=== PATIENT | male | born 1950 | race Caucasian/White ===

== ENCOUNTER 2016-05-05 21:58 | Inpatient (IN) | payer OTHER, MEDICARE ==
[~2016-05-05] VITALS: Ht 170.2 cm; Wt 76.0 kg
[~2016-05-05 21:58] MED LIST: LOVA20TA PO; PRED20 PO; RANI150 PO
[2016-05-05 21:59] VITALS: BP_SYST 132; BP_SYST 155; BP_DIAS 69; BP_DIAS 86; PULSE 83; RESP 18; TEMP 98.6; O2SAT 95
[2016-05-05] MEDS ORDERED: PRIL20CA9 PO (22:38)
[2016-05-05] MEDS ORDERED: ISOS30TA3 PO (22:38)
[2016-05-05] MEDS ORDERED: NITR0.4S SL (22:38)
[2016-05-05] MEDS ORDERED: ASPI1TAB69 PO (22:38)
[2016-05-05] MEDS ORDERED: LOVA20TA PO (22:38)
[2016-05-05] MEDS ORDERED: ASPIRIN 81 MG CHEW TAB PO ONE (22:45)
[2016-05-05] MEDS ORDERED: NITROGLYCERIN 2% OINT 1 GM PACKET TOP ONE (22:45)
[2016-05-05] MEDS ORDERED: SODIUM CHLORIDE 0.9% FLUSH 10 ML FLUSH IVF PRN (22:45)
[2016-05-05] MEDS ORDERED: SODIUM CHLORID 0.9% 500 ML INJ 500 ML IV ONE (22:45)
[2016-05-05 22:57] LABS: AUTOMATED NEUTROPHIL # 3.7 TH/MM3 (1.8-7.7); BASOPHIL # 0.1 TH/MM3 (0-0.2); BASOPHIL % 1.3 % (0.0-2.0); EOSINOPHIL # 0.4 TH/MM3 (0-0.4); EOSINOPHIL % 5.5 % (0.0-4.0); HEMATOCRIT 42.6 % (39.0-51.0); HEMO FLAGS DIFF FINAL; LYMPH % 34.1 % (9.0-44.0); LYMPHOCYTE # 2.5 TH/MM3 (1.0-4.8); MEAN CELL VOLUME 89.7 FL (80.0-100.0); MEAN CORPUSCULAR HEMOGLOBIN 30.5 PG (27.0-34.0); MEAN CORPUSCULAR HGB CONC 33.9 % (32.0-36.0); MONO % 8.5 % (0.0-8.0); NEUT % 50.6 % (16.0-70.0); PLATELET COUNT 244 TH/MM3 (150-450); RED BLOOD COUNT 4.74 MIL/MM3 (4.50-5.90); RED CELL DISTRIBUTION WIDTH 13.2 % (11.6-17.2); WHITE BLOOD COUNT 7.3 TH/MM3 (4.0-11.0)
[2016-05-05 23:01] VITALS: BP 148/78; PULSE 83; RESP 16; O2SAT 95
[2016-05-05] MEDS ORDERED: TAMS5CAP PO (23:01)
[2016-05-05] MEDS ORDERED: ALLO300T2 PO (23:01)
[2016-05-05] MEDS ORDERED: METO25TA3 PO (23:01)
[2016-05-05] MEDS ORDERED: PRAV40TA2 PO (23:01)
[2016-05-05] MEDS ORDERED: MILK250C PO (23:01)
[2016-05-05 23:02] LABS: CHLORIDE 106 MEQ/L (98-107); POTASSIUM 3.3 MEQ/L (3.5-5.1); SODIUM (NA) 142 MEQ/L (136-145)
[2016-05-05 23:06] LABS: ANION GAP 11 MEQ/L (5-15); BICARBONATE 24.7 MEQ/L (21.0-32.0); BLOOD UREA NITROGEN 13 MG/DL (7-18); MAGNESIUM 2.2 MG/DL (1.5-2.5)
[2016-05-05 23:08] LABS: INTERNATIONAL NORMALIZED RATIO 0.9 RATIO
[2016-05-05 23:09] LABS: ALT (GPT) 38 U/L (12-78); AST (GOT) 23 U/L (15-37); GLOMERULAR FILTRATION RATE 67 ML/MIN (>89)
[2016-05-05 23:11] LABS: TOTAL BILIRUBIN ADULT 0.3 MG/DL (0.2-1.0)
--- NOTE | 2016-05-05 23:11 | RADHPO ---
EXAM DATE/TIME: 05/05/2016 22:50 [place] COMPARISON: CHEST SINGLE AP, September 26, 2013, 22:16. INDICATIONS : Chest pain starting today MEDICAL HISTORY : None. SURGICAL HISTORY : None. ENCOUNTER: Initial ACUITY: 1 day PAIN SCORE: 7/10 LOCATION: Bilateral chest FINDINGS: Scattered streakiness is noted within the lung bases consistent with atelectasis and/or scarring. Cl inical correlation is recommended. The heart is stable. The pulmonary vascular pattern is normal. CONCLUSION: 1. Bibasilar streakiness consistent with atelectasis and/or scarring. 2. No focal alveolar consolidation or pulmonary edema. Alvaro Moy MD on May 05, 2016 at 23:05 Board Certified Radiologist. This report was verified electronically.
[2016-05-05 23:12] LABS: ALKALINE PHOSPHATASE 94 U/L (45-117)
--- NOTE | 2016-05-05 23:25 | PD ---
HPI Chief Complaint: Chest Pain Time Seen by Provider: 22:20 Travel History International Travel<30 days: No Contact w/Intl Traveler<30days: No Traveled to known affect area: No History of Present Illness HPI Is a 66-year-old man who presents to the emergency department complaining of chest pain and dyspnea on exertion is been worsening over the past 3-4 months. Patient states she's been getting pressure-like chest discomfort associated with shortness of breath predictably with exertion over the past 3-4 months is been getting steadily worse. These symptoms were worse today so he came to the emergency department. Reportedly follows with Dr. Huertas. He has no known history of CAD. He reportedly had a stress test done last week that they reported as normal however the daughter over the phone reported that the test was abnormal the paperwork with him rescheduled for an echocardiogram and therefore they were told if he developed any chest pain at all to come to the emergency department right away. He otherwise has been feeling generally well. He is not having lower extremity swelling, orthopnea, Alvaro evidence of heart failure. He is not otherwise recently ill or injured. Review systems is positive for some arthritis in his neck and headache symptoms. History Past Medical History Narrative Medical Hypertension Hyperlipidemia Fatty liver Tetanus Vaccination: > 5 Years Influenza Vaccination: No Social History Alcohol Use: Yes ("3 DAYS A WEEK ON MY DAYS OFF") Tobacco Use: No (QUIT AGE 33) Allergies-Medications (Allergen,Severity, Reaction): Coded Allergies: Lisinopril (Unverified Allergy, Severe, ANGIOEDEMA, 05/05/16) Reported Meds & Prescriptions Reported Meds & Active Scripts Active Reported Milk Thistle 250 Mg Cap 1 Cap PO DAILY Allopurinol 300 Mg Tab 300 Mg PO BID Flomax (Tamsulosin HCl) 0.4 Mg Cap 0.4 Mg PO DAILY Metoprolol Tartrate 25 Mg Tab 25 Mg PO BID Pravastatin 40 Mg Tab 40 Mg PO DAILY Prilosec (Omeprazole) 20 Mg Cap 20 Mg PO DAILY Nitrostat SL (Nitroglycerin) 0.4 Mg Subl 0.4 Mg SL DIRECTED PRN 1 tablet under the tongue as needed for chest pain. Repeat every 5 minutes for a total of 3 DOSES or call 911 if NO relief. Isosorbide Mononitrate ER (Isosorbide Mononitrate) 30 Mg Oscar 30 Mg PO DAILY Aspirin 81 Mg Tabdr 81 Mg PO DAILY Review of Systems Except as stated in HPI: all other systems reviewed are Neg Physical Exam Narrative GENERAL: Well-appearing 66 year-old man, no acute distress. SKIN: Focused skin assessment reveals a little bit of diaphoresis. HEAD: Atraumatic. Normocephalic. EYES: Pupils equal and round. No scleral icterus. No injection or drainage. ENT: No nasal bleeding or discharge. Mucous membranes pink and moist. NECK: Trachea midline. No JVD. CARDIOVASCULAR: Regular rate and rhythm. No murmur appreciated. Symmetric equal peripheral pulses upper and lower extremities. RESPIRATORY: No accessory muscle use. Clear to auscultation. Breath sounds equal bilaterally. GASTROINTESTINAL: Abdomen soft, non-tender, nondistended. Hepatic and splenic margins not palpable. MUSCULOSKELETAL: No obvious deformities. No edema. NEUROLOGICAL: Awake and alert. No obvious cranial nerve deficits. Motor grossly within normal limits. Normal speech. PSYCHIATRIC: Appropriate mood and affect; insight and judgment normal. Data Data Last Documented VS Vital Signs Date Time Temp Pulse Resp B/P Pulse Ox O2 Delivery O2 Flow Rate FiO2 05/05/16 23:01 83 16 148/78 95 Nasal Cannula 2 05/05/16 21:59 98.6 Orders B-Type Natriuretic Peptide (05/05/16 22:33) Complete Blood Count With Diff (05/05/16 22:33) Comprehensive Metabolic Panel (05/05/16 22:33) Magnesium (Mg) (05/05/16 22:33) Prothrombin Time / Inr (Pt) (05/05/16 22:33) Act Partial Throm Time (Ptt) (05/05/16 22:33) Troponin I (05/05/16 22:33) Lipase (05/05/16 22:33) Chest, Single Ap (05/05/16 22:33) Ecg Monitoring (05/05/16 22:33) Iv Access Insert/Monitor (05/05/16 22:33) Oximetry (05/05/16 22:33) Oxygen Administration (05/05/16 22:33) Aspirin Chew (Aspirin Chew) (05/05/16 22:45) Nitroglycerin 2% Oint (Nitroglycerin 2% (05/05/16 22:45) Sodium Chloride 0.9% Flush (Ns Flush) (05/05/16 22:45) Sodium Chlorid 0.9% 500 Ml Inj (Ns 500 M (05/05/16 22:45) Labs Laboratory Tests Test 05/05/16 22:05 White Blood Count 7.3 TH/MM3 Red Blood Count 4.74 MIL/MM3 Hemoglobin 14.4 GM/DL Hematocrit 42.6 % Mean Corpuscular Volume 89.7 FL Mean Corpuscular Hemoglobin 30.5 PG Mean Corpuscular Hemoglobin 33.9 % Concent Red Cell Distribution Width 13.2 % Platelet Count 244 TH/MM3 Mean Platelet Volume 8.7 FL Neutrophils (%) (Auto) 50.6 % Lymphocytes (%) (Auto) 34.1 % Monocytes (%) (Auto) 8.5 % Eosinophils (%) (Auto) 5.5 % Basophils (%) (Auto) 1.3 % Neutrophils # (Auto) 3.7 TH/MM3 Lymphocytes # (Auto) 2.5 TH/MM3 Monocytes # (Auto) 0.6 TH/MM3 Eosinophils # (Auto) 0.4 TH/MM3 Basophils # (Auto) 0.1 TH/MM3 CBC Comment DIFF FINAL Differential Comment Prothrombin Time 10.0 SEC Prothromb Time International 0.9 RATIO Ratio Activated Partial 29.0 SEC Thromboplast Time Sodium Level 142 MEQ/L Potassium Level 3.3 MEQ/L Chloride Level 106 MEQ/L Carbon Dioxide Level 24.7 MEQ/L Anion Gap 11 MEQ/L Blood Urea Nitrogen 13 MG/DL Creatinine 1.10 MG/DL Estimat Glomerular Filtration 67 ML/MIN Rate Random Glucose 87 MG/DL Calcium Level 8.6 MG/DL Magnesium Level 2.2 MG/DL Total Bilirubin 0.3 MG/DL Aspartate Amino Transf 23 U/L (AST/SGOT) Alanine Aminotransferase 38 U/L (ALT/SGPT) Alkaline Phosphatase 94 U/L Total Protein 7.4 GM/DL Albumin 3.8 GM/DL Lipase 384 U/L [facility] Medical Decision Making Medical Screen Exam Complete: Yes Emergency Medical Condition: Yes Interpretation(s) My review of EKG: Normal sinus rhythm at a rate of 88, normal axis, normal intervals, nonspecific septal and lateral ST changes. No definite evidence of acute ischemia. LABS: CBC is unremarkable. Generally unremarkable. Troponin 0.39 BNP is 68 Lipase is 34 Coags unremarkable Chest x-ray: Bibasilar streakiness consistent with atelectasis and/or scarring. No focal alveolar consolidation or pulmonary edema. Differential Diagnosis ACS, CHF, gastritis, PE, other Narrative Course Medical decision making INITIAL: This 66-year-old male with symptoms strongly suggestive of an acute coronary syndrome. Other etiologies could include CHF or PE. He looks generally well now. Does not have any chest discomfort at this time. EKG shows nonspecific lateral ST changes could be shared services representative some ischemia. Labs reveal elevated troponin. Also discussed a cardiology, likely anticoagulation, transfer the main hospital for ACS. Diagnosis Primary Impression: Acute coronary syndrome Admitting Information Admitting Physician Requests: Admit Francois Pino MD May 05, 2016 23:25
[2016-05-05] MEDS ORDERED: HEPARIN-D5W INJ 250 ML IV SCH (23:45)
[2016-05-05] MEDS ORDERED: HEPARIN SODIUM - IV 10,000 UNITS/10 ML VIAL IV ONE (23:45)
[2016-05-06] VITALS (20 sets, daily range): BP systolic 118–136; BP diastolic 62–77; PULSE 59–89; RESP 16–20; TEMP 97.2–98.6; O2SAT 94–98
[2016-05-06] MEDS ORDERED: SENNOSIDES 8.6 MG TAB PO PRN
[2016-05-06] MEDS ORDERED: MAGNESIUM HYDROXIDE SUSP 30 ML CUP PO PRN
[2016-05-06] MEDS ORDERED: NALOXONE HCL 0.4 MG/ML AMP IV PRN
[2016-05-06] MEDS ORDERED: BISACODYL 10 MG SUPP RECTAL PRN
[2016-05-06] MEDS ORDERED: METOPROLOL TARTRATE 25 MG TAB PO ONE (00:15)
[2016-05-06] MEDS: SODIUM CHLOR 0.45% 1000 ML INJ 1,000 ML IV SCH ×2 (00:26→13:14)
[2016-05-06] MEDS ORDERED: HEPARIN SODIUM - IV 10,000 UNITS/10 ML VIAL IV PRN ×4 (05:45→17:00)
[2016-05-06 06:22] LABS: AUTOMATED NEUTROPHIL # 3.9 TH/MM3 (1.8-7.7); BASOPHIL # 0.1 TH/MM3 (0-0.2); BASOPHIL % 1.2 % (0.0-2.0); EOSINOPHIL # 0.5 TH/MM3 (0-0.4); EOSINOPHIL % 6.9 % (0.0-4.0); HEMATOCRIT 38.6 % (39.0-51.0); HEMO FLAGS DIFF FINAL; LYMPH % 29.8 % (9.0-44.0); LYMPHOCYTE # 2.2 TH/MM3 (1.0-4.8); MEAN CELL VOLUME 89.7 FL (80.0-100.0); MEAN CORPUSCULAR HEMOGLOBIN 31.2 PG (27.0-34.0); MEAN CORPUSCULAR HGB CONC 34.8 % (32.0-36.0); MONO % 8.1 % (0.0-8.0); PLATELET COUNT 217 TH/MM3 (150-450); RED CELL DISTRIBUTION WIDTH 13.3 % (11.6-17.2); WHITE BLOOD COUNT 7.3 TH/MM3 (4.0-11.0)
[2016-05-06 06:29] LABS: CHLORIDE 108 MEQ/L (98-107); POTASSIUM 3.6 MEQ/L (3.5-5.1); SODIUM (NA) 142 MEQ/L (136-145)
[2016-05-06 06:46] LABS: ALKALINE PHOSPHATASE 79 U/L (45-117); ALT (GPT) 34 U/L (12-78); ANION GAP 9 MEQ/L (5-15); AST (GOT) 24 U/L (15-37); BICARBONATE 25.1 MEQ/L (21.0-32.0); BLOOD UREA NITROGEN 15 MG/DL (7-18); GLOMERULAR FILTRATION RATE 81 ML/MIN (>89); TOTAL BILIRUBIN ADULT 0.3 MG/DL (0.2-1.0)
[2016-05-06] MEDS ORDERED: ISOSORBIDE MONONITRATE 30 MG TAB PO SCH (07:00)
[2016-05-06 07:13] LABS: APTT (PATIENT) 111.1 SEC (24.3-30.1)
--- NOTE | 2016-05-06 08:13 | MB ---
cc: PAVEL FIGUEROA MD DATE OF CONSULTATION: 05/06/2016 REASON FOR CONSULTATION Acute coronary syndrome. HISTORY OF PRESENT ILLNESS The patient is a very pleasant 66-year gentleman known to me, who presented to my office about a week ago with classic symptoms of unstable angina. He declined emergency room and underwent a nuclear stress test which surprisingly was normal but he kept having worsening classic unstable angina and he was directed to the emergency department on several occasions but declined due to work, but last night he had severe chest pain and finally presented to the [facility]. Here he was given nitroglycerin and started on heparin and made chest pain free. His troponins are mildly elevated. This morning the patient is now asymptomatic without any residual chest pain, denying shortness of breath, lightheadedness, dizziness, syncope. PAST MEDICAL HISTORY 1. Unstable angina. 2. Hyperlipidemia. 3. Hypertension. MEDICATIONS Home medications include: 1. Flomax. 2. Allopurinol. 3. Metoprolol 25 mg b.i.d. 4. Pravastatin 40 mg daily. 5. Isosorbide 30 mg daily. 6. Sublingual nitroglycerin. ALLERGIES Lisinopril. PHYSICAL EXAMINATION VITAL SIGNS: Afebrile, pulse 64, respiratory rate 18, BP 118/70. Sating 98 on 2 liters. GENERAL: Very pleasant, well-appearing gentleman, in no distress. NECK: No JVD. LUNGS: Clear to auscultation bilaterally. CARDIOVASCULAR: Regular rate and rhythm. No murmurs appreciated. ABDOMEN: Benign. EXTREMITIES: No edema. LABORATORY DATA Sodium 142, potassium 3.6, chloride 108, bicarb 25.1, BUN 15, creatinine 0.93, glucose 107, PTT is 111, white count 7.3, hematocrit 38.6, platelets 217, troponin 0.39, 0.41. EKG From 12:30 this morning shows sinus rhythm with inferior and anterolateral ST depressions. IMPRESSION 1. ACS/non-STEMI. The patient presents with classic signs and symptoms of acute coronary syndrome. Though his nuclear stress test was normal, I suspect it is due to multivessel/ balanced ischemia. I discussed this with the patient and he agrees to be transferred to the [facility] for cardiac catheterization which will be done by my colleague Dr. Dela Cruz. Transfer has been arranged. Additionally, he is currently on heparin drip as well as aspirin. I am holding Plavix given the likelihood he may require bypass surgery for multi-vessel disease. Further recommendations will be based on his cardiac catheterization later this morning. Thank you again for the opportunity to participate in this patient's care. MD BEATRICE Goldberg/NEYMAR /7:50 AM /7:58 AM
[2016-05-06] MEDS ORDERED: SODIUM CHLORIDE 0.9% FLUSH 10 ML FLUSH IV FLUSH SCH (09:00)
[2016-05-06] MEDS: METOPROLOL TARTRATE 25 MG TAB PO SCH ×2 (10:24→21:02)
[2016-05-06] MEDS: PANTOPRAZOLE SOD 20 MG DELAYED RELEASE TAB PO SCH (10:24)
[2016-05-06] MEDS: ALLOPURINOL 300 MG TAB PO SCH ×2 (10:24→21:02)
[2016-05-06] MEDS: PRAVASTATIN SOD 40 MG TAB PO SCH (10:24)
[2016-05-06] MEDS: ASPIRIN EC 81 MG TABEC PO SCH (10:24)
[2016-05-06] MEDS: TAMSULOSIN HCL 0.4 MG CAP PO SCH (10:24)
[2016-05-06] MEDS ORDERED: HEPARIN-NS/PF INJ 500 ML ONE (10:37)
[2016-05-06] MEDS ORDERED: MIDAZOLAM HCL 2 MG/2 ML VIAL ONE ×2 (10:44→11:02)
[2016-05-06 10:56] LABS: APTT (PATIENT) 73.2 SEC (24.3-30.1)
--- NOTE | 2016-05-06 11:29 | MB ---
cc: JARETT BARNES DATE OF CONSULTATION May 06, 2016 DATE OF 1950 REASON FOR CONSULTATION [id number] VA/acute coronary syndrome. HISTORY OF PRESENT ILLNESS 66-year-old male with a past medical history significant for hyperlipidemia, hypertension who was admitted to the hospital with complaints of angina. He reports that he had a severe episode of chest pain last night at rest, non- radiating for which he presented to the [facility]. He has a recent nuclear stress test which was unremarkable. In the emergency department EKG shows sinus rhythm with inferior Q-waves as well as ST depressions and troponins are elevated. The patient was started on heparin drip and he has been seen by Cardiology, Dr. Mejia. Interventional Cardiology has been consulted for left heart cath. Currently the patient denies chest pain , shortness of breath, nausea, vomiting, fever, dizziness, lightheadedness, abdominal pain, melena, hematochezia. REVIEW OF SYSTEMS Negative except for what is mentioned in the HPI. PAST MEDICAL HISTORY 1. Hyperlipidemia. 2. Hypertension. 3. BPH. ALLERGIES LISINOPRIL. SOCIAL HISTORY Denies smoking. Denies alcohol use or illicit drug abuse. FAMILY HISTORY Noncontributory. PHYSICAL EXAMINATION VITAL SIGNS: Temperature 98.4, respiratory rate 18, heart rate 67, blood pressure 133/75. O2 sat 94% on 2 liters nasal cannula. GENERAL: He is awake, alert, oriented x 3, in no acute distress. NECK: No JVD, no carotid bruits. HEART: Regular rate and rhythm. No murmurs, rubs or gallops. ABDOMEN: Soft, nontender, nondistended with positive bowel sounds. EXTREMITIES: No edema. No cyanosis. Good pulses throughout. LABORATORY DATA Hemoglobin 13, hematocrit 38. INR 0.9. Sodium 142, potassium 3.6, BUN 15, creatinine 0.93. troponin 0.39 and 0.41. CHEST X-RAY No acute cardiopulmonary process. EKG Sinus rhythm with inferior Q-waves and ST depressions. ASSESSMENT AND PLAN 66-year-old male with cardiac risk factors that include hypertension and hyperlipidemia who presents to the hospital with a [id number] VA. Currently he remains afebrile and hemodynamically stable. The patient does have EKG changes suggestive of ischemia and the troponins are elevated. Given the patient's symptoms and findings, I see appropriate to take him to the Cardiac Catheterization Laboratory to further assess coronary anatomy. The risks and benefits of left heart cath/intervention including but not limit to bleeding, acute kidney injury, stroke, infection, emergent bypass surgery, neurovascular trauma, stroke and have been explained to the patient. The patient understands the risks and is willing to proceed. RECOMMENDATIONS 1. Emergent left heart cath. 2. Continue aggressive medical management for coronary artery disease. Further therapy to be determined Thank you for the opportunity to take part in the care of this patient. Jarett Barnes MD PLUMBER SUPERVISOR/SSB /10:46 AM /11:12 AM MTDD
[2016-05-06] MEDS ORDERED: MISC INFORMATION XX ONE (11:30)
[2016-05-06] MEDS ORDERED: ceFAZolin 2 GM PREMIX 50 ML IV SCH (12:15)
[2016-05-06] MEDS ORDERED: CHLORHEXIDINE GLUCONATE 4% SOLN 120 ML BTL TOPICAL SCH (12:15)
[2016-05-06] MEDS ORDERED: METOPROLOL TARTRATE 25 MG TAB PO SCH (12:15)
[2016-05-06] MEDS ORDERED: SODIUM CHLORIDE 0.9% FLUSH 10 ML FLUSH IV FLUSH PRN ×2 (12:15)
[2016-05-06] MEDS ORDERED: PAPAVERINE INJ 60 MG, NITROGLYCERIN INJ 100 MCG, DILTIAZEM INJ 100 MG in SODIUM CHLORID... IRRIGATION SCH (12:15)
[2016-05-06] MEDS ORDERED: INSULIN REGULAR (IV INFUSION) 100 UNITS in SODIUM CHLORIDE 0.9% INJ 100 ML IV SCH (12:15)
[2016-05-06] MEDS ORDERED: CEFAZOLIN INJ 500 MG in SODIUM CHLORIDE 0.9% IRR BTL 500 ML IRRIGATION SCH (12:15)
[2016-05-06] MEDS ORDERED: IOHEXOL 350 MG/ML 100 ML BTL (for Cath Lab) OTHER ONE (12:16)
--- NOTE | 2016-05-06 12:40 | PD.CAR.PN ---
CVT Progress Note Subjective/Hospital Course: sts data discussed with pt RISK SCORES About the STS Risk Calculator Procedure: CAB Only Risk of Mortality: 0.677% Morbidity or Mortality: 9.53% Long Length of Stay: 2.937% Short Length of Stay: 56.82% Permanent Stroke: 0.813% Prolonged Ventilation: 6.54% DSW Infection: 0.35% Renal Failure: 1.427% Reoperation: 4.132% Objective: Vital Signs Date Time Temp Pulse Resp B/P Pulse Ox O2 Delivery O2 Flow Rate FiO2 05/06/16 09:30 67 05/06/16 09:30 98.4 67 18 133/75 94 05/06/16 08:53 61 18 118/62 98 05/06/16 07:32 98 Nasal Cannula 2 05/06/16 07:32 98 Nasal Cannula 2 05/06/16 07:32 97.2 64 18 118/70 98 Nasal Cannula 2 05/06/16 06:58 97 Nasal Cannula 2 05/06/16 06:00 Nasal Cannula 2 05/06/16 05:58 62 16 125/68 97 Nasal Cannula 2 05/06/16 02:49 98.6 76 18 130/69 96 Nasal Cannula 2 05/06/16 01:43 96 Nasal Cannula 2.00 05/06/16 00:52 Nasal Cannula 2 05/05/16 23:01 83 16 148/78 95 Nasal Cannula 2 05/05/16 22:10 Nasal Cannula 2 05/05/16 22:00 83 95 Room Air 05/05/16 21:59 98.6 83 18 155/86 95 132/69 Labs: Laboratory Tests Test 05/06/16 05/06/16 05/06/16 04:00 06:00 10:13 Total Creatine Kinase 86 U/L (39-308) 136 U/L (39-308) Troponin I 0.41 NG/ML 1.05 NG/ML (0.02-0.05) (0.02-0.05) White Blood Count 7.3 TH/MM3 (4.0-11.0) Red Blood Count 4.30 MIL/MM3 (4.50-5.90) Hemoglobin 13.4 GM/DL (13.0-17.0) Hematocrit 38.6 % (39.0-51.0) Mean Corpuscular Volume 89.7 FL (80.0-100.0) Mean Corpuscular Hemoglobin 31.2 PG (27.0-34.0) Mean Corpuscular Hemoglobin 34.8 % Concent (32.0-36.0) Red Cell Distribution Width 13.3 % (11.6-17.2) Platelet Count 217 TH/MM3 (150-450) Mean Platelet Volume 8.5 FL (7.0-11.0) Neutrophils (%) (Auto) 54.0 % (16.0-70.0) Lymphocytes (%) (Auto) 29.8 % (9.0-44.0) Monocytes (%) (Auto) 8.1 % (0.0-8.0) Eosinophils (%) (Auto) 6.9 % (0.0-4.0) Basophils (%) (Auto) 1.2 % (0.0-2.0) Neutrophils # (Auto) 3.9 TH/MM3 (1.8-7.7) Lymphocytes # (Auto) 2.2 TH/MM3 (1.0-4.8) Monocytes # (Auto) 0.6 TH/MM3 (0-0.9) Eosinophils # (Auto) 0.5 TH/MM3 (0-0.4) Basophils # (Auto) 0.1 TH/MM3 (0-0.2) CBC Comment DIFF FINAL Differential Comment Activated Partial 111.1 SEC 73.2 SEC Thromboplast Time (24.3-30.1) (24.3-30.1) Sodium Level 142 MEQ/L (136-145) Potassium Level 3.6 MEQ/L (3.5-5.1) Chloride Level 108 MEQ/L (98-107) Carbon Dioxide Level 25.1 MEQ/L (21.0-32.0) Anion Gap 9 MEQ/L (5-15) Blood Urea Nitrogen 15 MG/DL (7-18) Creatinine 0.93 MG/DL (0.60-1.30) Estimat Glomerular Filtration 81 ML/MIN (>89) Rate Random Glucose 107 MG/DL (74-106) Calcium Level 7.9 MG/DL (8.5-10.1) Total Bilirubin 0.3 MG/DL (0.2-1.0) Aspartate Amino Transf 24 U/L (15-37) (AST/SGOT) Alanine Aminotransferase 34 U/L (12-78) (ALT/SGPT) Alkaline Phosphatase 79 U/L (45-117) Total Protein 6.1 GM/DL (6.4-8.2) Albumin 3.1 GM/DL (3.4-5.0) Result Diagram: 05/06/16 0600 05/06/16 06 Eunice David May 06, 2016 12:40
--- NOTE | 2016-05-06 13:26 | EKG ---
Date Performed: 05/05/2016 Time Performed: 23:17:40 PTAGE: 66 years EKG: Sinus rhythm . ST junctional depression is nonspecific Borderline ECG PREVIOUS TRACING : 05/05/2016 21.58 Compared to prior tracing no significant change DOCTOR: Xander Tierney Interpretating Date/Time 05/06/2016 13:23:15
--- NOTE | 2016-05-06 13:26 | EKG ---
Date Performed: 05/05/2016 Time Performed: 21:58:10 PTAGE: 66 years EKG: Sinus rhythm . ST junctional depression is nonspecific Borderline ECG PREVIOUS TRACING : 09/27/2013 05.09 Compared to prior tracing no significant change DOCTOR: Xander Tierney Interpretating Date/Time 05/06/2016 13:23:23
--- NOTE | 2016-05-06 13:26 | EKG ---
Date Performed: 05/06/2016 Time Performed: 03:41:44 PTAGE: 66 years EKG: Sinus rhythm . Septal T wave changes are nonspecific Borderline ECG PREVIOUS TRACING : 05/06/2016 00.30 Compared to prior tracing no significant change DOCTOR: Xander Tierney Interpretating Date/Time 05/06/2016 13:23:06
--- NOTE | 2016-05-06 13:34 | HHI.HP ---
[facility] Service [facility] Primary Care Physician Chin Workman MD Admission Diagnosis ACS Diagnoses: Chief Complaint: Chest pain Travel History International Travel<30 Days: No Contact w/Intl Traveler <30 Da: No Traveled to Known Affected Are: No History of Present Illness 66 years old male with past medical history of hypertension hyperlipidemia presented to the ED at [facility] last night with a complaint of left arm numbness and chest heaviness accompanied on by short of breath lightheadedness, and sweatiness. Troponin increased slightly, EKG showed sinus rhythm with inferior Q waves as well as ST depressions, patient started on heparin drip atient transferred [facility] for heart catheter which he had this morning. Initially patient stated he had these chest pain episode 3 weeks ago for which he followed with Dr. Lea, him and his told me patient had a stress test which came back negative. I saw the patient around 12:30 he was having 2-D echo of the heart, he got his chest pain is gone, and family were at the bedside Review of Systems All 10 systems reviewed and was positive for what is mentioned in history of present illness otherwise negative Past Family Social History Past Medical History Hypertension Hyperlipidemia BPH Past Surgical History See history of present illness Allergies: Coded Allergies: Lisinopril (Unverified Allergy, Severe, ANGIOEDEMA, 05/05/16) Family History Reviewed with the patient, patient is not aware of significant medical disease runs in his family Social History Quit smoking many years ago, drinks a bottle of beer occasionally Physical Exam Vital Signs Vital Signs Date Time Temp Pulse Resp B/P Pulse Ox O2 Delivery O2 Flow Rate FiO2 05/06/16 09:30 67 05/06/16 09:30 98.4 67 18 133/75 94 05/06/16 08:53 61 18 118/62 98 05/06/16 07:32 98 Nasal Cannula 2 05/06/16 07:32 98 Nasal Cannula 2 05/06/16 07:32 97.2 64 18 118/70 98 Nasal Cannula 2 05/06/16 06:58 97 Nasal Cannula 2 05/06/16 06:00 Nasal Cannula 2 05/06/16 05:58 62 16 125/68 97 Nasal Cannula 2 05/06/16 02:49 98.6 76 18 130/69 96 Nasal Cannula 2 05/06/16 01:43 96 Nasal Cannula 2.00 05/06/16 00:52 Nasal Cannula 2 05/05/16 23:01 83 16 148/78 95 Nasal Cannula 2 05/05/16 22:10 Nasal Cannula 2 05/05/16 22:00 83 95 Room Air 05/05/16 21:59 98.6 83 18 155/86 95 132/69 Physical Exam GENERAL: This is a well-nourished, well-developed patient, in no apparent distress. SKIN: No rashes, warm and dry HEAD: Atraumatic. Normocephalic. EYES: Pupils equal round and reactive. Extraocular motions intact. No scleral icterus. ENT: Nose without bleeding, or drainage, Airway patent. NECK: Trachea midline. Supple CARDIOVASCULAR: Regular rate and rhythm without murmurs, gallops, or rubs. RESPIRATORY: Fair air entry bilaterally. No wheezes, rales, or rhonchi. GASTROINTESTINAL: Abdomen soft, non-tender, nondistended. Positive bowel sounds MUSCULOSKELETAL: Extremities without clubbing, cyanosis, or edema. Pedal pulses appreciated NEUROLOGICAL: Awake and alert. Moves all extremity. Normal speech.no focal neurological deficit Laboratory Laboratory Tests Test 05/05/16 05/06/16 05/06/16 05/06/16 22:05 04:00 06:00 10:13 White Blood Count 7.3 7.3 Red Blood Count 4.74 4.30 Hemoglobin 14.4 13.4 Hematocrit 42.6 38.6 Mean Corpuscular Volume 89.7 89.7 Mean Corpuscular Hemoglobin 30.5 31.2 Mean Corpuscular Hemoglobin 33.9 34.8 Concent Red Cell Distribution Width 13.2 13.3 Platelet Count 244 217 Mean Platelet Volume 8.7 8.5 Neutrophils (%) (Auto) 50.6 54.0 Lymphocytes (%) (Auto) 34.1 29.8 Monocytes (%) (Auto) 8.5 8.1 Eosinophils (%) (Auto) 5.5 6.9 Basophils (%) (Auto) 1.3 1.2 Neutrophils # (Auto) 3.7 3.9 Lymphocytes # (Auto) 2.5 2.2 Monocytes # (Auto) 0.6 0.6 Eosinophils # (Auto) 0.4 0.5 Basophils # (Auto) 0.1 0.1 CBC Comment DIFF FINAL DIFF FINAL Differential Comment Prothrombin Time 10.0 Prothromb Time International 0.9 Ratio Activated Partial 29.0 111.1 73.2 Thromboplast Time Sodium Level 142 142 Potassium Level 3.3 3.6 Chloride Level 106 108 Carbon Dioxide Level 24.7 25.1 Anion Gap 11 9 Blood Urea Nitrogen 13 15 Creatinine 1.10 0.93 Estimat Glomerular Filtration 67 81 Rate Random Glucose 87 107 Calcium Level 8.6 7.9 Magnesium Level 2.2 Total Bilirubin 0.3 0.3 Aspartate Amino Transf 23 24 (AST/SGOT) Alanine Aminotransferase 38 34 (ALT/SGPT) Alkaline Phosphatase 94 79 Troponin I 0.39 0.41 1.05 B-Type Natriuretic Peptide 68 Total Protein 7.4 6.1 Albumin 3.8 3.1 Lipase 384 Total Creatine Kinase 86 136 Result Diagram: 05/06/16 0600 05/06/16 0600 Imaging Last Impressions Chest X-Ray 05/05/162232 Signed Impressions: Service Date/Time: Thursday, May 05, 2016 22:50 - CONCLUSION: 1. Bibasilar streakiness consistent with atelectasis and/or scarring. 2. No focal alveolar consolidation or pulmonary edema. Alvaro Moy MD Initial EKG showed sinus rhythm with ST depression Assessment and Plan Assessment and Plan 66 years old male admitted with Chest pain increased troponin rule out ACS/non-STEMI Hypertension Hyperlipidemia H/O BPH History of gout DVT prophylaxis Plan: Admitted to inpatient Started with aspirin, heparin drip Consult cardiology appreciated their help, status post heart catheter this morning Further recommendation per cardiology Initiate statin , Lopressor, isosorbide, continue aspirin Awaiting 2-D echo, low dose MARIVEL inhibitor at discharge Absolution for BPH Allopurinol for gout DVT prophylaxis with SCD patient was on heparin drip Discussed Condition With Patient and his family Physician Certification 2 Midnight Certification Type: Admission for Inpatient Services Order for Inpatient Services The services are ordered in accordance with Medicare regulations or non- Medicare payer requirements, as applicable. In the case of services not specified as inpatient-only, they are appropriately provided as inpatient services in accordance with the 2-midnight benchmark. Estimated LOS (days): 2 days is the estimated time the patient will need to remain in the hospital, assuming treatment plan goals are met and no additional complications. Post-Hospital Plan: Not yet determined Fiorella Adame MD May 06, 2016 13:34
--- NOTE | 2016-05-06 13:39 | MA ---
cc: JARETT BARNES DATE: 05/06/2016 DATE OF : 1950 PROCEDURE PERFORMED 1. Left heart catheterization. 2. Selective right and left coronary angiography. 3. Left ventriculogram. 4. Right common femoral artery angiography. INDICATION ACS/non-STEMI. DESCRIPTION OF PROCEDURE Consent was signed. The patient was brought into the cardiac phlebotomy lab assistant in fasting state. The right groin was prepped and draped in sterile fashion. Using 1% lidocaine for local anesthesia and a micropuncture kit a 5-Urdu sheath was inserted into the right common femoral artery, right common femoral artery angiography was performed to confirm position of the sheath. Selective right and left coronary angiography was performed with a JR-4 and JL-4 diagnostic catheters, respectively. Angiography was taken in multiple views. An angled pigtail over the wire was introduced into the left ventricle followed by pressure recordings, ventriculogram and pullback. The patient tolerated the procedure well without complications. Estimated blood loss was less than 30 ccs. Total contrast used 90 ccs. The right groin access site was closed with Vascade closure device. RESULTS LEFT VENTRICLE The left ventricular pressure was 124/22 with an LVEDP of 34. The aortic pressure was 116/44 with a mean of 82. The left ventriculogram revealed hypokinesis on the anterior wall with an estimated ejection fraction of 45%. There is no gradient upon pullback from the left ventricle to the aorta. ANGIOGRAPHY 1. Left main has a significant 80% lesion distally. 2. LAD is a transapical vessel with a 90% lesion proximally. The first diagonal has ostial 90% lesion and another 70% lesion proximally. The vessel has ROCHELLE-III flow. 3. Left circumflex is diffusely diseased and it has an ostial 70% lesion. 4. Right coronary artery is a dominant vessel, it is diffusely diseased with diffusely calcified, it has a mid 30% lesion. CONCLUSION 1. Severe three-vessel coronary artery disease involving the left main. 2. Mild LV systolic dysfunction. 3. Diastolic dysfunction/elevated LVEDP. RECOMMENDATIONS The patient has been consulted to CT surgery for CABG. Continue aggressive medical management for ACS per ACC AHA guidelines with aspirin, statins, beta blockers, and heparin. Will get a 2-D echocardiogram today for better assessment of left ventricular function. MD CATHERINE Bose/NEYMAR /11:34 AM /1:20 PM SILVESTRE
--- NOTE | 2016-05-06 14:39 | MB ---
cc: TILA SU DATE OF CONSULTATION: 05/06/2016 DATE OF : 1950 HISTORY OF PRESENT ILLNESS A 66-year-old patient of Dr. Chin Workman, Dr. Lea, who apparently had a nuclear stress test a few days ago which was unremarkable. However, he presented to the [facility] emergency department with a severe episode of chest pain last evening, non-radiating, was transferred over here to the [facility] for cardiac cath. The patient had some Q-waves as well as some ST depressions and troponins mildly elevated. Troponin of 1.05. He underwent cardiac cath by Dr. Ruslan Dela Cruz showing a 70% stenosis in the left main, 90% proximal LAD, 30% mid distal LAD, 70% diagonal, circumflex was 70% and RCA 30%. The patient's EF was 45%. 2-D echo apparently is pending. We were consulted to evaluate for coronary artery bypass grafting. PAST MEDICAL HISTORY Past medical history includes: 1. Hypertension. 2. Hyperlipidemia. 3. Benign prostatic hypertrophy. ALLERGIES LISINOPRIL. MEDICATIONS Home medications include: 1. Flomax. 2. Allopurinol. 3. Metoprolol. 4. Pravachol. 5. Imdur. 6. Nitro. 7. Aspirin. 8. Milk thistle. 9. Prilosec. FAMILY HISTORY Noncontributory. SOCIAL HISTORY The patient is . Drinks occasional alcohol 3 days a week on his days off. He quit smoking at age 33. He works in outdoor maintenance. REVIEW OF SYSTEMS GENERAL: No night sweats, fever, heat and cold intolerance. SKIN: No psoriasis, itching or hives. HEENT: No blurred vision, hearing loss. RESPIRATORY: He did have some shortness of breath with his pain. CARDIOVASCULAR: As above in HPI. GASTROINTESTINAL: No diarrhea, vomiting. GENITOURINARY: No burning, frequency, urgency. LABOR DELIVERY RN: No history of TIA, CVA, seizure disorder. ENDOCRINOLOGY: No diabetes or hypothyroidism. PHYSICAL EXAMINATION VITAL SIGNS: Blood pressure 130/70, heart rate 68, temperature max 98.4, room air is 98%. GENERAL: Patient is awake, alert, in no acute distress. HEENT: Head is normocephalic, atraumatic. Pupils equal and reactive. Oral mucosa pink, moist. NECK: Supple. No JVD. CARDIAC: Heart sounds S1-S2, regular rate and rhythm. No audible rubs, murmurs, gallops. LUNGS: Clear to auscultation. No wheezes, rales or rhonchi. ABDOMEN: Soft, nontender. No masses or organomegaly. EXTREMITIES: No cyanosis, clubbing or edema. LABORATORY DATA Lab work shows hemoglobin 13, hematocrit 38, white cell count 7.3, platelet count 217, sodium 142, potassium 3.6, BUN 15 with a creatinine 0.93, troponin 1.05. IMAGING STUDIES Chest x-ray is unremarkable. No consolidation or pulmonary edema. EKG Shows sinus rhythm with some nonspecific ST changes. IMPRESSION 1. This is a 66-year-old pleasant male with positive ruled in for non-STEMI. The EF is 45%, multivessel disease. PLAN Plan will be for coronary artery bypass grafting x3. Procedures, alternatives and risks have been discussed by Dr. Tila Su. STS data has been documented in the electronic record. Plan will be for surgery in the a.m. He has further testing to include carotid ultrasound, pulmonary function testing and vein leg mapping. He is to continue on Heparin, which will be discontinued 4 hours prior to surgery. Dictated by: HARVEY AlmonteP-Theresa MD BRIGHT Welch/NEYMAR /12:44 PM /2:34 PM
--- NOTE | 2016-05-06 15:01 | RADRPT ---
EXAM DATE/TIME: 05/06/2016 14:01 [facility] COMPARISON: No previous studies available for comparison. INDICATIONS : PreOp cardiac surgery. MEDICAL HISTORY : Hypercholesterolemia. Hypertension. Dizziness. Dyspnea. Fatty liver. GERD. Herniated disk. Angina. SURGICAL HISTORY : Tonsillectomy. Ear surgery. ENCOUNTER: Initial ACUITY: 1 day PAIN SCORE: 0/10 LOCATION: Bilateral neck PEAK SYSTOLIC VELOCITIES (cm/sec): ICA/CCA RATIO: Right: 1.0 Left: 0.9 ICA: Right: 73 Left: 72 CCA: Right: 74 Left: 83 ECA: Right: 87 Left: 101 VERTEBRAL: Right: 34 antegrade Left: 40 antegrade Elevated flow velocities and ICA/CCA ratios have been found to correlate with increased degrees of vessel stenosis, calculated as percentage of diameter relative to a normal segment of distal ICA/CCA FINDINGS: RIGHT CAROTID: No significant stenosis is visualized. The waveforms are within normal limits. LEFT CAROTID: No significant stenosis is visualized. The waveforms are within normal limits. VERTEBRAL ARTERIES: Antegrade flow is seen in both vertebral arteries. MISCELLANEOUS: None. CONCLUSION: 1. No evidence of hemodynamically significant lesion. Xander Mckenna MD on May 06, 2016 at 14:59 Board Certified Radiologist. This report was verified electronically.
--- NOTE | 2016-05-06 15:08 | RADRPT ---
EXAM DATE/TIME: 05/06/2016 14:13 [facility] COMPARISON: No previous studies available for comparison. INDICATIONS : PreOp cardiac surgery. MEDICAL HISTORY : Hypercholesterolemia. Hypertension. Dizziness. Dyspnea. Fatty liver. GERD. Herniated disk. Angina. SURGICAL HISTORY : Tonsillectomy. Ear surgery. ENCOUNTER: Initial ACUITY: 1 day PAIN SCORE: 0/10 LOCATION: Bilateral legs. TECHNIQUE: Venous ultrasound of the left and right leg was performed from the inguinal ligament to the proximal calf. Real-time, color Doppler and spectral tracing, compression and augmentation techniques were us ed. FINDINGS: RIGHT LEG: There is normal compressibility of the deep venous system from the inguinal region to the proximal ca lf. No echogenic clot is seen in the lumen of the common femoral, femoral, popliteal, and posterior tibial veins. There is a normal response of the venous system to proximal and distal augmentation an d respiration. LEFT LEG: There is normal compressibility of the deep venous system from the inguinal region to the proximal ca lf. No echogenic clot is seen in the lumen of the common femoral, femoral, popliteal, and posterior tibial veins. There is a normal response of the venous system to proximal and distal augmentation an d respiration. CONCLUSION: 1. No evidence of deep venous thrombosis. Xander Mckenna MD on May 06, 2016 at 14:59 Board Certified Radiologist. This report was verified electronically.
--- NOTE | 2016-05-06 15:09 | RADRPT ---
EXAM DATE/TIME: 05/06/2016 14:20 [facility] COMPARISON: No previous studies available for comparison. INDICATIONS : PreOp cardiac surgery. MEDICAL HISTORY : Hypercholesterolemia. Hypertension. Dizziness. Dyspnea. Fatty liver. GERD. Herniated disk. Angina. SURGICAL HISTORY : Tonsillectomy. Ear surgery. ENCOUNTER: Initial ACUITY: 1 day PAIN SCORE: 0/10 LOCATION: Bilateral legs. GREATER SAPHENOUS VEIN THIGH: PROXIMAL: Right 5 mm Left 5 mm MID: Right 5 mm Left 4 mm DISTAL: Right 5 mm Left 5 mm CALF: PROXIMAL: Right 3 mm Left 2 mm MID: Right 2 mm Left 1 mm DISTAL: Right 4 mm Left 3 mm FINDINGS: The venous system of the lower extremities are patent by color Doppler imaging. Measurements of the leg veins (in mm) are listed above. CONCLUSION: 1. Venous mapping as above Xander Mckenna MD on May 06, 2016 at 15:07 Board Certified Radiologist. This report was verified electronically.
--- NOTE | 2016-05-06 15:51 | EKG ---
Date Performed: 05/06/2016 Time Performed: 00:30:16 PTAGE: 66 years EKG: Sinus rhythm . Lateral ST changes may be due to myocardial ischemia Since previous tracing, no significant change noted Abnormal ECG PREVIOUS TRACING : 05/05/2016 23.17 DOCTOR: Xander Tierney Interpretating Date/Time 05/06/2016 15:49:30
[2016-05-06] MEDS ORDERED: HEPARIN 25,000 UNITS-D5W 250 ML - PREMIX IV SCH (17:00)
--- NOTE | 2016-05-06 17:12 | EC ---
Study Study Date:05/06/2016 STUDY CONCLUSIONS SUMMARY - Left ventricle: The cavity size was normal. Wall thickness was normal. Systolic function was normal. The estimated ejection fraction was in the range of 55% to 60%. Wall motion was normal; there were no regional wall motion abnormalities. - Aortic valve: Valve area: 2.14cm^2 (Vmax). - Mitral valve: Mild regurgitation. If LV function is below 40, please consider prescribing an ACEI or ARB or document rationale for non-use. PROCEDURE DATA STUDY STATUS: Elective. Procedure: Transthoracic echocardiography. Image quality was good. Scanning was performed from the parasternal, apical, and subcostal acoustic windows. Study completion: The patient tolerated the procedure well. Transthoracic echocardiography. M-mode, complete 2D, complete spectral Doppler, and color Doppler. Height: Height: 67in. Weight: Weight: 178.6lb. Body mass index: BMI: 28kg/m^2. Body surface area: BSA: 1.93m^2. Patient status: Inpatient. CARDIAC ANATOMY LEFT VENTRICLE: The cavity size was normal. Wall thickness was normal. Systolic function was normal. The estimated ejection fraction was in the range of 55% to 60%. Wall motion was normal; there were no regional wall motion abnormalities. AORTIC VALVE: Trileaflet; normal thickness leaflets. Doppler: Transvalvular velocity was within the normal range. There was no stenosis. No regurgitation. Valve area: 2.14cm^2 (Vmax). Indexed valve area: 1.11cm^2/m^2 (Vmax). AORTA: Aortic root: The aortic root was normal in size. MITRAL VALVE: Structurally normal valve. Doppler: Transvalvular velocity was within the normal range. There was no evidence for stenosis. Mild regurgitation. Valve area by pressure half-time: 4cm^2. Indexed valve area by pressure half-time: 2.07cm^2/m^2. Peak gradient: 4mm Hg (D). LEFT ATRIUM: The atrium was normal in size. RIGHT VENTRICLE: The cavity size was normal. Wall thickness was normal. PULMONIC VALVE: Doppler: Transvalvular velocity was within the normal range. There was no evidence for stenosis. No regurgitation. TRICUSPID VALVE: Structurally normal valve. Doppler: Transvalvular velocity was within the normal range. Trace regurgitation. Peak gradient: 27mm Hg (D). PULMONARY ARTERY: The main pulmonary artery was normal-sized. Systolic pressure was within the normal range. RIGHT ATRIUM: The atrium was normal in size. PERICARDIUM: There was no pericardial effusion. SYSTEMIC VEINS: Inferior vena cava: The vessel was normal in size. Patient weight: 178.6lb _Ejection fraction:_ 65-75% _Fractional shortening:_ 32% up to 5Kg 5-11.5Kg 11.6-22.9Kg 23-45Kg 45-57Kg Aortic Root 7-13 <17 13-22 17-27 17-27 LA diam 6-13 <23 24-38 33-47 37-40 RVID 10-17 7-15 7-15 7-18 8-17 LVIDd 12-22 <32 24-38 33-47 37-40 LVPW 2-4 3-6 5-7 6-8 7-8 IVS 2-4 3-6 5-7 6-8 7-8 BASIC MEASUREMENTS ADULT NORMAL Left ventricle LV internal dimension, ED, chordal *40.6 mm 43-52 level, PLAX LV internal dimension, ES, chordal 27.3 mm 23-38 level, PLAX Fractional shortening, chordal level, 33 % >29 PLAX LV posterior wall thickness, ED 8.78 mm IVS/LVPW ratio, ED 0.99 <1.3 Volume, ED, MOD, 1-plane 69 ml Volume, ES, MOD, 1-plane 26 ml Ejection fraction, MOD, 1-plane 62 % Stroke volume, MOD, 1-plane 43 ml Volume index, ED, MOD, 1-plane 36 ml/m^2 Volume index, ES, MOD, 1-plane 13 ml/m^2 Stroke index, MOD, 1-plane 22.3 ml/m^2 Ventricular septum Septal thickness, ED 8.71 mm Aortic valve Leaflet separation 19 mm 15-26 Aorta Root diameter, ED 32 mm Left atrium Anterior-posterior dimension 36 mm Anterior-posterior dimension index 1.87 cm/m^2 <2.2 Right ventricle RV internal dimension, ED, PLAX 25.4 mm 19-38 BASIC MEASUREMENTS ADULT NORMAL Aortic valve Leaflet separation 19 mm 15-26 Aorta Root diameter, ED 32 mm 20-37 DOPPLER MEASUREMENTS ADULT NORMAL Main pulmonary artery Pressure, S 28 mm Hg =30 Aortic valve Peak velocity, S 126 cm/s Valve area, Vmax 2.14 cm^2 Valve area index, Vmax 1.11 cm^2/m^2 Mitral valve Peak E-wave velocity 104 cm/s Peak A-wave velocity 98.7 cm/s Pressure half-time 55 ms Peak gradient, D 4 mm Hg Peak E/A ratio 1.1 Valve area, pressure half-time 4 cm^2 Valve area index, pressure half-time 2.07 cm^2/m^2 Tricuspid valve Peak gradient, D 27 mm Hg Maximal inflow velocity 258 cm/s Regurgitant peak velocity 232 cm/s Peak RV-RA gradient, S 22 mm Hg Systemic veins Estimated CVP 10 mm Hg Right ventricle RV pressure, S *32 mm Hg <30 Pulmonic valve Peak velocity, S 97.7 cm/s LEGEND: Mean values are shown as u=mean value. Asterisk (*) burden values outside specified normal range. Prepared and signed by Ruslan Nelson [id number]
[2016-05-06 18:17] LABS: BLOOD, URINE NEG (NEG); GLUCOSE,URINE NEG (NEG); KETONE, URINE NEG (NEG); NITRITE,URINE NEG (NEG); URINE COLOR COLORLESS (YELLW/STRAW)
[2016-05-06 18:24] LABS: COMMENT (UR) CULT NOT INDICATED; CULTURE IF INDICATED CULT NOT INDICATED
[2016-05-06 19:01] LABS: HEMOGLOBIN A1b 1.7 %; HEMOGLOBIN Ao 85.1 %; HEMOGLOBIN P3 3.9 %
[2016-05-06] MEDS: SODIUM CHLORIDE 0.9% FLUSH 10 ML FLUSH IV FLUSH SCH (21:02)
[2016-05-07] VITALS (13 sets, daily range): BP systolic 100–146; BP diastolic 61–86; PULSE 64–101; RESP 8–18; TEMP 97–98.3; O2SAT 85–99
[2016-05-07 01:24] LABS: APTT (PATIENT) 37.1 SEC (24.3-30.1)
[2016-05-07] MEDS: SODIUM CHLOR 0.45% 1000 ML INJ 1,000 ML IV SCH ×2 (02:34→11:30)
[2016-05-07] MEDS ORDERED: NITROGLYCERIN-DEXTROSE INJ 250 ML IV ONE (05:00)
[2016-05-07] MEDS ORDERED: ARTIFICIAL TEARS OPTH OINT 3.5 APPLIC/3.5 GM TUBO ONE (05:00)
[2016-05-07] MEDS ORDERED: AMINOCAPROIC ACID SOLN 250 MG/ML ONE (05:00)
[2016-05-07] MEDS ORDERED: FUROSEMIDE 100 MG/10 ML VIAL IV PUSH ONE (05:00)
[2016-05-07] MEDS ORDERED: PROTAMINE SULFATE 250 MG/25 ML VIAL IV ONE (05:00)
[2016-05-07] MEDS ORDERED: HEPARIN SODIUM - SQ 10,000 UNITS/ML VIAL SQ ONE (05:00)
[2016-05-07] MEDS ORDERED: NEOSTIGMINE METHYLSULFATE 10 MG/10 ML VIAL IV PUSH ONE (05:00)
[2016-05-07] MEDS ORDERED: PHENYLEPHRINE HCL 10 MG/ML VIAL IV ONE (05:00)
[2016-05-07] MEDS ORDERED: CALCIUM CHLORIDE 10% SOLN 1 GRAM/10 ML SYR IV ONE (05:00)
[2016-05-07] MEDS ORDERED: MAGNESIUM SULFATE 1000 MG/2 ML VIAL (PED) IV ONE (05:00)
[2016-05-07] MEDS ORDERED: AMIODARONE INJ 150 MG in DEXTROSE 5% IN WATER 100ML INJ 100 ML IV ONE ×2 (05:00)
[2016-05-07] MEDS ORDERED: GLYCOPYRROLATE 0.2 MG/ML VIAL IV ONE (05:00)
[2016-05-07] MEDS ORDERED: VANCOMYCIN HCL 1000 MG VIAL ONE (06:28)
[2016-05-07] MEDS ORDERED: HEPARIN SODIUM - SQ 10,000 UNITS/ML VIAL ONE (06:28)
[2016-05-07] MEDS ORDERED: methylPREDNISolone SOD SUCC 125 MG/2 ML VIAL ONE (06:28)
[2016-05-07] MEDS ORDERED: POTASSIUM CHLORIDE 40 MEQ/20 ML VIAL ONE (06:37)
[2016-05-07] MEDS ORDERED: CARDIOPLEGIC IRR 1,000 ML ONE (06:37)
[2016-05-07] MEDS ORDERED: MANNITOL INJ 50 ML ONE (06:37)
[2016-05-07] MEDS ORDERED: SODIUM BICARBONATE 8.4% INJ 50 ML ONE (06:38)
[2016-05-07] MEDS ORDERED: ALBUMIN HUMAN 25% 12.5 GM/50 ML BAGP IV ONE (06:38)
[2016-05-07] MEDS: PRAVASTATIN SOD 40 MG TAB PO SCH (09:00)
[2016-05-07] MEDS: ALLOPURINOL 300 MG TAB PO SCH ×2 (09:00→21:06)
[2016-05-07] MEDS: ASPIRIN EC 81 MG TABEC PO SCH (09:00)
[2016-05-07] MEDS: SODIUM CHLORIDE 0.9% FLUSH 10 ML FLUSH IV FLUSH SCH ×3 (09:00→22:22)
[2016-05-07] MEDS: TAMSULOSIN HCL 0.4 MG CAP PO SCH (09:00)
[2016-05-07] MEDS: PANTOPRAZOLE SOD 20 MG DELAYED RELEASE TAB PO SCH (09:00)
[2016-05-07] MEDS ORDERED: DEXTROSE 50% IN WATER 50 ML VIAL(D50) IV PUSH PRN (11:00)
[2016-05-07] MEDS ORDERED: ACETAMINOPHEN 325 MG TAB PO PRN (11:00)
[2016-05-07] MEDS ORDERED: POTASSIUM CHLOR 20 MEQ PREMIX 100 ML IV PRN ×2 (11:00)
[2016-05-07] MEDS ORDERED: CALCIUM CHLORIDE 10% 1 GRAM/10 ML VIAL IV PRN (11:00)
[2016-05-07] MEDS ORDERED: INSULIN REGULAR (IV INFUSION) 100 UNITS in SODIUM CHLORIDE 0.9% INJ 99 ML IV SCH (11:00)
[2016-05-07] MEDS ORDERED: ACETAMINOPHEN 650 MG SUPP RECTAL PRN (11:00)
[2016-05-07] MEDS ORDERED: hydrALAZINE HCL 20 MG/ML VIAL IV PRN (11:00)
[2016-05-07] MEDS ORDERED: POTASSIUM CHLORIDE 20 MEQ CONTROLLED RELEASE TAB PO PRN ×2 (11:00)
[2016-05-07] MEDS ORDERED: Post-op Orders (for Pharmacy) MISC OTHER ONE (11:00)
[2016-05-07] MEDS ORDERED: CALCIUM CHLORIDE INJ 1 GM in SODIUM CHLORIDE 0.9% INJ 100 ML IV PRN (11:00)
[2016-05-07] MEDS ORDERED: LACTATED RINGER'S 1000 ML INJ 500 ML IV PRN (11:00)
[2016-05-07] MEDS ORDERED: MAGNESIUM SULFATE INJ 2 GM in SODIUM CHLORIDE 0.9% INJ 100 ML IV PRN ×4 (11:00)
[2016-05-07] MEDS ORDERED: CLEVIDIPINE INJ 50 ML IV SCH (11:00)
--- NOTE | 2016-05-07 11:10 | PD.OP ---
cc: Ruslan Nelson MD; Tila Su MD Operative Report Date of Surgery: May 07, 2016 Preoperative Diagnosis: (1) Acute coronary syndrome (2) CAD (coronary artery disease) Left Main CAD Postoperative Diagnosis: same Procedure: CABG x 3 HICSK to LAD - good SVG to OM- good SVG to D1 - fair EVH Anesthesia: Dr. Hoffman Surgeon: Tila Su Residential Program Manager(s): John Meek Operation and Findings: . The risks, benefits, complications, treatment options, and expected outcomes were discussed with the patient. The possibilities of reaction to medication, pulmonary aspiration, perforation of viscus, bleeding, recurrent infection, the need for additional procedures, failure to diagnose a condition, and creating a complication requiring transfusion or operation were discussed with the patient. The patient concurred with the proposed plan, giving informed consent. The site of surgery properly noted/marked. The patient was taken to Operating Room, identified as Rigoberto Romero and the procedure verified as CABG, EVH, KRISTEN. A Time Out was held and the above information confirmed. Standard monitoring lines and Mccray catheter were placed. General anesthesia was induced. The patient was prepped and draped in a sterile fashion. A median sternotomy was performed and electrocautery was used to obtain hemostasis. The left internal mammary artery was procured as a pedicle from the 7th rib to the 1st rib in the usual manner. Simultaneously left greater saphenous vein was procured from the left leg using a minimally invasive endoscopic technique. The vein was prepared for anastomosis and the leg wound was irrigated and closed in 2 layers. The pericardium was opened and a pericardial sling was created using interrupted 0 silk sutures. The patient was heparinized for cardiopulmonary bypass and the distal mammary pedicle was instrumented for anastomosis. The heart was instrumented for cardiopulmonary bypass in the usual manner. Antegrade blood cardioplegia was employed. The patient was placed on cardiopulmonary bypass. An aortic cross-clamp was applied and the heart was arrested using cold blood cardioplegia. Antegrade cardioplegia was administered after he each anastomosis. After adequate arrest, the distal OM was opened with a Kaibab blade and found to be a 1.5 millimeter good target. Saphenous vein was approximated to the OM artery using a running 7 0 Prolene suture. The graft was measured for length and orientation and the proximal anastomosis was constructed to the ascending aorta using a running 5 0 Prolene suture after creating an aortotomy with a 5 millimeter punch. The 1st diagonal artery was then opened with a Kaibab blade and found to be a 1 millimeter fair target. Saphenous vein was approximated to the D1 artery using a running 7 0 Prolene suture. The graft was measured for length and orientation and was suspended from the pericardium. The distal LAD was opened with a Kaibab blade and found to be a 1.5 millimeter good target. The left internal mammary artery was approximated to the LAD using a running 7 0 Prolene suture. The pedicle was attached to the epicardium using interrupted 5 0 silk suture. The patient was systemically rewarmed and received a hotshot dose of warm blood cardioplegia. The aorta was vented and the proximal anastomosis to the D1 graft was accomplished using a running 5 0 Prolene suture after creating an aortotomy was a 5 millimeter punch. The cross -clamp was removed and all proximal and distal anastomoses were examined for hemostasis. The patient was weaned from cardiopulmonary bypass. Protamine was given. There was no adverse reaction. Decannulation was carried out without incident. Wound was checked for hemostasis which was obtained using electrocautery. A 36 Mongolian mediastinal and 32 Mongolian left pleural chest was were placed and secured to the skin with 0 silk suture. The sternum was closed with stainless steel wire. The fascia was closed with 1. PDS. The subcutaneous tissue was closed using a running 2-0 Vicryl suture. The skin was closed with 4- 0 Monocryl. Sterile dressings were placed. At the end of the operation, all sponge, instruments, and needle counts were correct. The patient was transferred to the CICU in stable condition. Findings: Diffuse CAD, good LV functon XC: 50 min CPB: 56 min Drains: mediastinal x 1 pleural x 1 Complications: none Disposition: To CVICU in stable condition Tila Su MD May 07, 2016 11:10
[2016-05-07] MEDS ORDERED: MIDAZOLAM HCL 5 MG/5 ML VIAL ONE (11:42)
[2016-05-07] MEDS ORDERED: fentaNYL CITRATE 1000 MCG/20 ML VIAL ONE (11:43)
[2016-05-07] MEDS: ACETAMINOPHEN 1000 MG/100 ML VIAL IV SCH ×3 (11:53→23:44)
[2016-05-07] MEDS: METOPROLOL TARTRATE 5 MG/5 ML VIAL IV PUSH PRN (11:55)
--- NOTE | 2016-05-07 11:59 | HHI.PR ---
Subjective Remarks Patient had a CABG surgery today, he still on C Pap sedated postop day #0 Objective Vitals Vital Signs Date Time Temp Pulse Resp B/P Pulse Ox O2 Delivery O2 Flow Rate FiO2 05/07/16 11:39 96 80 05/07/16 07:06 Nasal Cannula 2.00 05/07/16 04:00 64 16 05/07/16 04:00 Nasal Cannula 2.00 05/07/16 04:00 64 05/07/16 00:00 70 16 05/07/16 00:00 70 05/07/16 00:00 97 Nasal Cannula 2.00 05/06/16 22:00 136/77 05/06/16 20:56 98 Nasal Cannula 2.00 05/06/16 20:00 97 Nasal Cannula 2.00 05/06/16 20:00 98.4 89 18 129/77 97 05/06/16 20:00 88 05/06/16 18:00 71 05/06/16 17:00 73 05/06/16 16:47 68 05/06/16 16:00 68 20 121/67 94 05/06/16 15:00 73 05/06/16 15:00 68 05/06/16 15:00 73 05/06/16 14:00 61 05/06/16 14:00 62 05/06/16 13:00 62 05/06/16 13:00 60 05/06/16 12:00 59 05/06/16 12:00 62 I/O 05/06/16 05/06/16 05/06/16 05/07/16 05/07/16 05/07/16 07:00 15:00 23:00 07:00 15:00 23:00 Intake Total 500 ml 707 ml 1222 ml Output Total 350 ml 500 ml 1100 ml Balance 150 ml 207 ml 122 ml Intake Oral 360 ml IV Total 500 ml 707 ml 862 ml Output Urine Total 350 ml 500 ml 1100 ml # Voids 2 # Bowel Movements 0 0 Result Diagram: 05/06/16 0605/06/16 0600 Objective Remarks GENERAL: This is a well-nourished, well-developed patient, sedated postop CARDIOVASCULAR: Regular rate and rhythm without murmurs, gallops, or rubs. RESPIRATORY: Fair entry bilaterally. No wheezes, rales, or rhonchi. Chest tube in place GASTROINTESTINAL: Abdomen soft, non-tender, nondistended. Normal active bowel sounds MUSCULOSKELETAL: Extremities without clubbing, cyanosis, or edema. NEURO: Sedated postop A/P Assessment and Plan 66 years old male admitted with Chest pain increased troponin rule out ACS/non-STEMI Hypertension Hyperlipidemia H/O BPH History of gout DVT prophylaxis Plan: Condition initially placed on aspirin, heparin drip, Consult cardiology appreciated their help, status post heart catheter this morning found 3 vessels CAD, CVS consulted patient had CABG this morning, post op management per CV[facility] team Continue statin , Lopressor, isosorbide, continue aspirin Awaiting 2-D echo, low dose MARIVEL inhibitor at discharge Absolution for BPH Allopurinol for gout DVT prophylaxis with SCD patient was on heparin drip Fiorella Adame MD May 07, 2016 11:59
[2016-05-07] MEDS: POTASSIUM CHLOR 20 MEQ PREMIX 100 ML IV PRN ×2 (12:01→14:32)
--- NOTE | 2016-05-07 12:37 | RADRPT ---
EXAM DATE/TIME: 05/07/2016 11:35 [facility] COMPARISON: CHEST SINGLE AP, May 05, 2016, 22:50. INDICATIONS : S/p cabg. MEDICAL HISTORY : None. SURGICAL HISTORY : Tonsillectomy. ENCOUNTER: Initial ACUITY: 2 days PAIN SCORE: Non-responsive. LOCATION: Bilateral chest FINDINGS: A single view of the chest demonstrates postsurgical changes characteristic of a reported history of CABG. Endotracheal tube is seen with the tip at the clavicular heads. Right IJ central venous cathete r projects over the central venous system. Left-sided thoracostomy tube without pneumothorax. Mediast inal drain is identified. There is a nasogastric tube with the tip at the GE junction. This probably needs to be advanced at least 10 cm forward. Bilateral atelectatic changes in the right perihilar and left lingular regions. Lungs are otherwise c lear. Osseous structures are intact. CONCLUSION: 1. Nasogastric tube with the tip at the GE junction. This needs to be advanced at least 10 cm forward . Life support tubes are otherwise appropriate position. 2. Bilateral atelectatic changes with no confluent infiltrate.. Tho Murphy MD on May 07, 2016 at 12:17 Board Certified Radiologist. This report was verified electronically.
[2016-05-07] MEDS ORDERED: NORMOSOL R INJ 2,000 ML IV ONE (14:21)
[2016-05-07] MEDS ORDERED: SODIUM CHLORID 0.9% 500 ML INJ 500 ML IV ONE (14:21)
[2016-05-07] MEDS ORDERED: LACTATED RINGER'S 1000 ML INJ 2,000 ML IV ONE (14:21)
[2016-05-07] MEDS ORDERED: SODIUM CHLOR 0.9% 250 ML INJ 250 ML IV ONE (14:21)
[2016-05-07] MEDS ORDERED: SODIUM CHLORIDE 0.9% INJ 200 ML IV ONE (14:21)
[2016-05-07] MEDS: ONDANSETRON HCL 4 MG/2 ML VIAL IV PUSH PRN (16:02)
[2016-05-07] MEDS: oxyCODONE/ACETAMINOPHEN 5 MG/325 MG TAB PO PRN ×2 (17:57→21:05)
[2016-05-07] MEDS: KETOROLAC TROMETHAMINE 30 MG/ML (IVP) VIAL IV PUSH PRN (17:57)
[2016-05-07] MEDS ORDERED: RESP: ALBUTEROL 2.5 MG/IPRATROPIUM 0.5 MG NEB (PRN) NEB (18:30)
[2016-05-07] MEDS: RESP: ALBUTEROL 2.5 MG/IPRATROPIUM 0.5 MG NEB (SCH) NEB (19:56)
[2016-05-07] MEDS: AMIODARONE 200 MG TAB PO SCH (21:05)
[2016-05-08] VITALS (15 sets, daily range): BP systolic 112–138; BP diastolic 55–86; PULSE 90–138; RESP 15–20; TEMP 97.5–98.6; O2SAT 92–97
[2016-05-08] MEDS: oxyCODONE/ACETAMINOPHEN 5 MG/325 MG TAB PO PRN ×5 (00:23→19:50)
[2016-05-08] MEDS: ACETAMINOPHEN 1000 MG/100 ML VIAL IV SCH (04:31)
[2016-05-08 04:39] LABS: HEMATOCRIT 38.7 % (39.0-51.0); MEAN CELL VOLUME 88.9 FL (80.0-100.0); MEAN CORPUSCULAR HEMOGLOBIN 29.9 PG (27.0-34.0); MEAN CORPUSCULAR HGB CONC 33.7 % (32.0-36.0); PLATELET COUNT 187 TH/MM3 (150-450); RED BLOOD COUNT 4.36 MIL/MM3 (4.50-5.90); REVIEW FLAG FINAL; WHITE BLOOD COUNT 14.6 TH/MM3 (4.0-11.0)
[2016-05-08 04:49] LABS: MAGNESIUM 2.2 MG/DL (1.5-2.5)
[2016-05-08] MEDS: SODIUM CHLOR 0.45% 1000 ML INJ 1,000 ML IV SCH ×2 (05:14→17:48)
--- NOTE | 2016-05-08 05:17 | RADRPT ---
EXAM DATE/TIME: 05/08/2016 04:30 [facility] COMPARISON: CHEST SINGLE AP, May 07, 2016, 11:35. INDICATIONS : Shortness of breath, possible pulmonary disease. MEDICAL HISTORY : None. SURGICAL HISTORY : Tonsillectomy. CABG. ENCOUNTER: Subsequent ACUITY: 2 days PAIN SCORE: Non-responsive. LOCATION: Bilateral chest FINDINGS: Portable AP view of the chest demonstrates a normal-sized cardiac silhouette in this patient post med benoit sternotomy. The endotracheal tube and nasogastric tube have been removed. Right IJ line remains p resent as does a mediastinal drain and left chest tube. No pneumothorax is visualized. There is bibas ilar airspace opacity, slightly increased at the left base. CONCLUSION: 1. Left chest tube remains present and no pneumothorax is visualized. 2. Persistent bibasilar airspace opacity, slightly increased at the left base. Kyrie Caba MD on May 08, 2016 at 5:15 Board Certified Radiologist. This report was verified electronically.
[2016-05-08] MEDS: RESP: ALBUTEROL 2.5 MG/IPRATROPIUM 0.5 MG NEB (SCH) NEB ×3 (07:29→21:19)
[2016-05-08] MEDS: TAMSULOSIN HCL 0.4 MG CAP PO SCH (08:31)
[2016-05-08] MEDS: ALLOPURINOL 300 MG TAB PO SCH ×2 (08:31→20:21)
[2016-05-08] MEDS: PRAVASTATIN SOD 40 MG TAB PO SCH (08:31)
[2016-05-08] MEDS: ASPIRIN EC 81 MG TABEC PO SCH (08:31)
[2016-05-08] MEDS: PANTOPRAZOLE SOD 20 MG DELAYED RELEASE TAB PO SCH (08:31)
[2016-05-08] MEDS: AMIODARONE 200 MG TAB PO SCH ×2 (08:31→20:21)
[2016-05-08] MEDS: SODIUM CHLORIDE 0.9% FLUSH 10 ML FLUSH IV FLUSH SCH ×4 (08:32→21:00)
--- NOTE | 2016-05-08 09:21 | PD.CAR.PN ---
CVT Progress Note Subjective/Hospital Course: sts data discussed with pt RISK SCORES About the STS Risk Calculator Procedure: CAB Only Risk of Mortality: 0.677% Morbidity or Mortality: 9.53% Long Length of Stay: 2.937% Short Length of Stay: 56.82% Permanent Stroke: 0.813% Prolonged Ventilation: 6.54% DSW Infection: 0.35% Renal Failure: 1.427% Reoperation: 4.132% 05/07 Procedure: CABG x 3 HICKS to LAD - good SVG to OM- good SVG to D1 - fair EVH 05/08 Doing well Extubated and tolerating Transfer telemetry Ambulate CT to drainage Objective: Vital Signs Date Time Temp Pulse Resp B/P Pulse Ox O2 Delivery O2 Flow Rate FiO2 05/08/16 07:00 98.3 90 16 112/73 96 120/60 05/08/16 07:00 90 05/08/16 07:00 96 Nasal Cannula 4.00 Humidified 05/08/16 03:00 98.0 102 20 119/55 97 120/72 05/08/16 03:00 96 05/08/16 03:00 97 Nasal Cannula 4.00 Humidified 05/07/16 23:00 101 05/07/16 23:00 97.0 101 18 146/65 94 144/86 05/07/16 23:00 94 Nasal Cannula 6.00 Humidified 05/07/16 20:05 95 Nasal Cannula 6.00 05/07/16 19:00 94 Nasal Cannula 6.00 Humidified 05/07/16 19:00 97.6 93 18 117/71 94 124/71 05/07/16 19:00 92 05/07/16 17:37 93 Nasal Cannula 6.00 05/07/16 16:19 98.3 05/07/16 16:00 92 Nasal Cannula 5.00 05/07/16 15:00 86 05/07/16 15:00 98.3 77 15 100/62 97 110/82 05/07/16 15:00 99 Partial Non-Rebreather 15.00 05/07/16 15:00 86 05/07/16 12:59 97.3 05/07/16 12:46 92 Partial Rebreather 15.00 05/07/16 12:46 85 Nasal Cannula 6 05/07/16 12:40 50 05/07/16 12:20 50 05/07/16 12:16 80 05/07/16 12:13 92 Mechanical Ventilator 80 05/07/16 12:13 83 05/07/16 11:45 97.2 05/07/16 11:39 96 80 05/07/16 11:30 80 05/07/16 11:30 97.1 85 8 108/68 99 127/61 Labs: Laboratory Tests Test 05/08/16 04:09 White Blood Count 14.6 TH/MM3 (4.0-11.0) Red Blood Count 4.36 MIL/MM3 (4.50-5.90) Hemoglobin 13.0 GM/DL (13.0-17.0) Hematocrit 38.7 % (39.0-51.0) Mean Corpuscular Volume 88.9 FL (80.0-100.0) Mean Corpuscular Hemoglobin 29.9 PG (27.0-34.0) Mean Corpuscular Hemoglobin 33.7 % Concent (32.0-36.0) Red Cell Distribution Width 14.0 % (11.6-17.2) Platelet Count 187 TH/MM3 (150-450) Mean Platelet Volume 8.5 FL (7.0-11.0) Sodium Level 140 MEQ/L (136-145) Potassium Level 4.0 MEQ/L (3.5-5.1) Chloride Level 104 MEQ/L (98-107) Carbon Dioxide Level 26.0 MEQ/L (21.0-32.0) Anion Gap 10 MEQ/L (5-15) Blood Urea Nitrogen 15 MG/DL (7-18) Creatinine 0.83 MG/DL (0.60-1.30) Estimat Glomerular Filtration 93 ML/MIN (>89) Rate Random Glucose 132 MG/DL (74-106) Calcium Level 8.4 MG/DL (8.5-10.1) Magnesium Level 2.2 MG/DL (1.5-2.5) Result Diagram: 05/08/169 05/08/16 0409 Bonifacio Badillo MD May 08, 2016 09:21
[2016-05-08] MEDS ORDERED: SOD PHOSPHATE/SOD BIPHOSPHATE (ADULT) ENEMA 133ML RECTAL PRN (09:30)
[2016-05-08] MEDS ORDERED: DEXTROSE 50% IN WATER 50 ML VIAL(D50) IV PRN (09:30)
[2016-05-08] MEDS ORDERED: BISACODYL 10 MG SUPP RECTAL PRN (09:30)
[2016-05-08] MEDS ORDERED: GLUCAGON 1 MG/ML VIAL OTHER PRN (09:30)
[2016-05-08] MEDS ORDERED: PILL SPLITTER OTHER PRN (09:45)
[2016-05-08] MEDS ORDERED: VANCOMYCIN INJ 1,300 MG in SODIUM CHLORID 0.9% 500 ML INJ 500 ML IV ONE (11:00)
[2016-05-08] MEDS: LEVOFLOXACIN 750 MG PREMIX INJ 150 ML IV SCH (11:13)
[2016-05-08] MEDS: INSULIN ASPART SUPPLEMENTAL SCALE SQ SCH ×4 (11:15→22:00)
--- NOTE | 2016-05-08 14:27 | HHI.PR ---
Subjective Remarks Patient sitting on a chair in no acute distress He is of all gtt afebrile however wbc inc today with cxr showed bibasilar airspace disease he simón cough or cp/sob Objective Vitals Vital Signs Date Time Temp Pulse Resp B/P Pulse Ox O2 Delivery O2 Flow Rate FiO2 05/08/16 14:02 98.3 90 17 120/73 97 05/08/16 11:00 96 Nasal Cannula 2.00 Humidified 05/08/16 11:00 98.3 90 17 120/73 96 Arterial Line 05/08/16 11:00 98 05/08/16 10:26 98.3 97 15 112/69 97 118/70 05/08/16 07:00 98.3 90 16 112/73 96 120/60 05/08/16 07:00 90 05/08/16 07:00 96 Nasal Cannula 4.00 Humidified 05/08/16 03:00 98.0 102 20 119/55 97 120/72 05/08/16 03:00 96 05/08/16 03:00 97 Nasal Cannula 4.00 Humidified 05/07/16 23:00 101 05/07/16 23:00 97.0 101 18 146/65 94 144/86 05/07/16 23:00 94 Nasal Cannula 6.00 Humidified 05/07/16 20:05 95 Nasal Cannula 6.00 05/07/16 19:00 94 Nasal Cannula 6.00 Humidified 05/07/16 19:00 97.6 93 18 117/71 94 124/71 05/07/16 19:00 92 05/07/16 17:37 93 Nasal Cannula 6.00 05/07/16 16:19 98.3 05/07/16 16:00 92 Nasal Cannula 5.00 05/07/16 15:00 86 05/07/16 15:00 98.3 77 15 100/62 97 110/82 05/07/16 15:00 99 Partial Non-Rebreather 15.00 05/07/16 15:00 86 I/O 05/07/16 05/07/16 05/07/16 05/08/16 05/08/16 05/08/16 07:00 15:00 23:00 07:00 15:00 23:00 Intake Total 1222 ml 2340 ml 480 ml Output Total 1100 ml 1850 ml 655 ml Balance 122 ml 490 ml -175 ml Intake Oral 360 ml 40 ml 480 ml IV Total 862 ml 2300 ml Output Urine Total 1100 ml 1600 ml 505 ml Drainage Total 250 ml 150 ml # Bowel Movements 0 0 0 Result Diagram: 05/08/169 05/08/16 0409 Imaging Last Impressions Chest X-Ray 05/08/16 0500 Signed Impressions: Service Date/Time: Sunday, May 08, 2016 04:30 - CONCLUSION: 1. Left chest tube remains present and no pneumothorax is visualized. 2. Persistent bibasilar airspace opacity, slightly increased at the left base. Kyrie Caba MD Lower Extremity Ultrasound 05/06/16 0000 Signed Impressions: Service Date/Time: April 14:20 - CONCLUSION: 1. Venous mapping as above Xander Mckenna MD Carotid Artery Ultrasound 05/06/16 0000 Signed Impressions: Service Date/Time: April 14:01 - CONCLUSION: 1. No evidence of hemodynamically significant lesion. Xander Mckenna MD Objective Remarks GENERAL: This is a well-nourished, well-developed patient, in nad CARDIOVASCULAR: Regular rate and rhythm without murmurs, gallops, or rubs. RESPIRATORY: Fair entry bilaterally. No wheezes, rales, or rhonchi. Chest tube in place GASTROINTESTINAL: Abdomen soft, non-tender, nondistended. Normal active bowel sounds MUSCULOSKELETAL: Extremities without clubbing, cyanosis, or edema. NEURO: AAox3 , moves all exts A/P Assessment and Plan 05/08: pt off all drips , doing better clinically however , WBC inc 14k w left shift, cxr showed bibasilar airspace disease >>[facility] , will started on levaquin 750 mg daily , gave one dose of vanco , prophylactically for suspect PNA HAP/VAP recheck cbc, bmp, bnp in am A/P: 66 years old male admitted with multiple vessels CAD w non-STEMI Hypertension Hyperlipidemia H/O BPH History of gout DVT prophylaxis Plan: Condition initially placed on aspirin, heparin drip, Consult cardiology appreciated their help, status post heart catheter this morning found 3 vessels CAD, CVS consulted patient had CABG this morning, post op management per CVS team Continue statin , Lopressor, isosorbide, continue aspirin Awaiting 2-D echo, low dose MARIVEL inhibitor at discharge Absolution for BPH Allopurinol for gout DVT prophylaxis with SCD patient was on heparin drip Fiorella Adame MD May 08, 2016 14:27
[2016-05-08] MEDS: ONDANSETRON HCL 4 MG/2 ML VIAL IV PUSH PRN (19:12)
[2016-05-08] MEDS: METOPROLOL TARTRATE 25 MG TAB PO SCH (20:21)
[2016-05-08] MEDS: DOCUSATE SODIUM 100 MG CAP PO SCH (20:21)
[2016-05-08] MEDS: SENNOSIDES 8.6 MG TAB PO SCH (20:21)
[2016-05-08] MEDS: METOPROLOL TARTRATE 5 MG/5 ML VIAL IV PUSH PRN ×2 (22:09→23:43)
[2016-05-09] VITALS (29 sets, daily range): BP systolic 124–141; BP diastolic 77–93; PULSE 90–125; RESP 16–18; TEMP 97.9–98.3; O2SAT 92–95
[2016-05-09] MEDS: METOPROLOL TARTRATE 5 MG/5 ML VIAL IV PUSH PRN ×2 (01:55→21:19)
[2016-05-09] MEDS: oxyCODONE/ACETAMINOPHEN 5 MG/325 MG TAB PO PRN ×5 (01:56→23:47)
[2016-05-09] MEDS: INSULIN ASPART SUPPLEMENTAL SCALE SQ SCH ×6 (02:00→22:00)
[2016-05-09] MEDS ORDERED: FINASTERIDE 5 MG TAB PO ONE (02:45)
[2016-05-09] MEDS ORDERED: LIDOCAINE 2% JELLY 30 ML TUBE TOPICAL ONE (03:45)
[2016-05-09] MEDS ORDERED: LIDOCAINE HCL 2% JELLY 5 ML SYRINGE TOPICAL ONE (04:00)
[2016-05-09 05:05] LABS: AUTOMATED NEUTROPHIL # 9.3 TH/MM3 (1.8-7.7); BASOPHIL % 0.3 % (0.0-2.0); EOSINOPHIL % 0.2 % (0.0-4.0); HEMATOCRIT 36.9 % (39.0-51.0); HEMO FLAGS DIFF FINAL; LYMPH % 11.2 % (9.0-44.0); LYMPHOCYTE # 1.3 TH/MM3 (1.0-4.8); MEAN CELL VOLUME 90.4 FL (80.0-100.0); MEAN CORPUSCULAR HEMOGLOBIN 29.8 PG (27.0-34.0); MONO % 9.4 % (0.0-8.0); NEUT % 78.9 % (16.0-70.0); PLATELET COUNT 185 TH/MM3 (150-450); RED BLOOD COUNT 4.08 MIL/MM3 (4.50-5.90); RED CELL DISTRIBUTION WIDTH 14.4 % (11.6-17.2); WHITE BLOOD COUNT 11.8 TH/MM3 (4.0-11.0)
[2016-05-09 05:31] LABS: BICARBONATE 25.2 MEQ/L (21.0-32.0); MAGNESIUM 2.1 MG/DL (1.5-2.5); POTASSIUM 3.7 MEQ/L (3.5-5.1)
[2016-05-09] MEDS: KETOROLAC TROMETHAMINE 30 MG/ML (IVP) VIAL IV PUSH PRN (07:26)
[2016-05-09] MEDS: SODIUM CHLOR 0.45% 1000 ML INJ 1,000 ML IV SCH (07:54)
[2016-05-09] MEDS: RESP: ALBUTEROL 2.5 MG/IPRATROPIUM 0.5 MG NEB (SCH) NEB ×5 (08:00→20:21)
[2016-05-09] MEDS: LEVOFLOXACIN 750 MG PREMIX INJ 150 ML IV SCH (08:32)
[2016-05-09] MEDS: POLYETHYLENE GLYCOL 17 GM PKG PO SCH (08:33)
[2016-05-09] MEDS: ALLOPURINOL 300 MG TAB PO SCH ×2 (08:33→21:18)
[2016-05-09] MEDS: MAGNESIUM HYDROXIDE SUSP 30 ML CUP PO SCH (08:33)
[2016-05-09] MEDS: TAMSULOSIN HCL 0.4 MG CAP PO SCH (08:34)
[2016-05-09] MEDS: METOPROLOL TARTRATE 25 MG TAB PO SCH ×2 (08:34→21:18)
[2016-05-09] MEDS: MULTIVITAMINS/MINERALS THERAPEUTIC TAB PO SCH (08:34)
[2016-05-09] MEDS: ASPIRIN EC 81 MG TABEC PO SCH (08:35)
[2016-05-09] MEDS: DOCUSATE SODIUM 100 MG CAP PO SCH ×2 (08:35→21:18)
[2016-05-09] MEDS: ATORVASTATIN 40 MG TAB PO SCH (08:35)
[2016-05-09] MEDS: SODIUM CHLORIDE 0.9% FLUSH 10 ML FLUSH IV FLUSH SCH ×4 (08:36→21:00)
[2016-05-09] MEDS: PANTOPRAZOLE SOD 20 MG DELAYED RELEASE TAB PO SCH (08:36)
[2016-05-09] MEDS: AMIODARONE 200 MG TAB PO SCH ×2 (08:36→21:18)
[2016-05-09] MEDS: PRAVASTATIN SOD 40 MG TAB PO SCH (08:37)
--- NOTE | 2016-05-09 09:10 | PD.CAR.PN ---
CVT Progress Note Subjective/Hospital Course: sts data discussed with pt RISK SCORES About the STS Risk Calculator Procedure: CAB Only Risk of Mortality: 0.677% Morbidity or Mortality: 9.53% Long Length of Stay: 2.937% Short Length of Stay: 56.82% Permanent Stroke: 0.813% Prolonged Ventilation: 6.54% DSW Infection: 0.35% Renal Failure: 1.427% Reoperation: 4.132% 05/07 Procedure: CABG x 3 HICKS to LAD - good SVG to OM- good SVG to D1 - fair EVH 05/08 Doing well Extubated and tolerating Transfer telemetry Ambulate CT to drainage 05/09 Having issues with urinary retention. Restarted Flomax Maintain CT to drainage Ambulate Objective: Vital Signs Date Time Temp Pulse Resp B/P Pulse Ox O2 Delivery O2 Flow Rate FiO2 05/09/16 08:00 115 05/09/16 07:46 98.1 105 16 141/93 92 05/09/16 07:46 93 Room Air 05/09/16 07:00 116 05/09/16 05:00 108 05/09/16 04:00 115 05/09/16 04:00 92 Room Air 05/09/16 04:00 98.0 105 16 130/85 92 05/09/16 03:00 112 05/09/16 02:00 125 05/09/16 01:00 102 05/09/16 00:05 94 Room Air 05/09/16 00:00 97.9 104 16 129/90 95 05/09/16 00:00 105 05/08/16 23:00 112 05/08/16 22:00 138 05/08/16 21:19 92 21 05/08/16 21:00 114 05/08/16 20:10 94 Room Air 05/08/16 20:00 116 05/08/16 20:00 97.5 101 16 138/86 95 05/08/16 19:00 100 05/08/16 18:15 20 05/08/16 18:00 106 05/08/16 17:23 97.8 98 16 126/77 97 05/08/16 17:00 102 05/08/16 15:00 98.6 97 18 118/74 96 05/08/16 15:00 97 05/08/16 15:00 94 Nasal Cannula Humidified 05/08/16 15:00 97 05/08/16 14:02 98.3 90 17 120/73 97 05/08/16 11:00 96 Nasal Cannula 2.00 Humidified 05/08/16 11:00 98.3 90 17 120/73 96 Arterial Line 05/08/16 11:00 98 05/08/16 10:26 98.3 97 15 112/69 97 118/70 Labs: Laboratory Tests Test 05/09/16 04:50 White Blood Count 11.8 TH/MM3 (4.0-11.0) Red Blood Count 4.08 MIL/MM3 (4.50-5.90) Hemoglobin 12.2 GM/DL (13.0-17.0) Hematocrit 36.9 % (39.0-51.0) Mean Corpuscular Volume 90.4 FL (80.0-100.0) Mean Corpuscular Hemoglobin 29.8 PG (27.0-34.0) Mean Corpuscular Hemoglobin 33.0 % Concent (32.0-36.0) Red Cell Distribution Width 14.4 % (11.6-17.2) Platelet Count 185 TH/MM3 (150-450) Mean Platelet Volume 8.1 FL (7.0-11.0) Neutrophils (%) (Auto) 78.9 % (16.0-70.0) Lymphocytes (%) (Auto) 11.2 % (9.0-44.0) Monocytes (%) (Auto) 9.4 % (0.0-8.0) Eosinophils (%) (Auto) 0.2 % (0.0-4.0) Basophils (%) (Auto) 0.3 % (0.0-2.0) Neutrophils # (Auto) 9.3 TH/MM3 (1.8-7.7) Lymphocytes # (Auto) 1.3 TH/MM3 (1.0-4.8) Monocytes # (Auto) 1.1 TH/MM3 (0-0.9) Eosinophils # (Auto) 0.0 TH/MM3 (0-0.4) Basophils # (Auto) 0.0 TH/MM3 (0-0.2) CBC Comment DIFF FINAL Differential Comment Sodium Level 139 MEQ/L (136-145) Potassium Level 3.7 MEQ/L (3.5-5.1) Chloride Level 106 MEQ/L (98-107) Carbon Dioxide Level 25.2 MEQ/L (21.0-32.0) Anion Gap 8 MEQ/L (5-15) Blood Urea Nitrogen 12 MG/DL (7-18) Creatinine 0.65 MG/DL (0.60-1.30) Estimat Glomerular Filtration 123 ML/MIN Rate (>89) Random Glucose 122 MG/DL (74-106) Calcium Level 7.7 MG/DL (8.5-10.1) Magnesium Level 2.1 MG/DL (1.5-2.5) B-Type Natriuretic Peptide 292 PG/ML (0-100) Result Diagram: 05/09/16 0450 05/09/16 0450 Bonifacio Badillo MD May 09, 2016 09:10
--- NOTE | 2016-05-09 13:56 | HHI.PR ---
Subjective Remarks Patient doing well resting in bed, chest tube draining still in place, denied cough or fever or chest tightness, no significant clinical sign of pneumonia Last night he had problem urinating he was started on Proscar and Mccray inserted, he told me he had a problem with prostate Objective Vitals Vital Signs Date Time Temp Pulse Resp B/P Pulse Ox O2 Delivery O2 Flow Rate FiO2 05/09/16 12:00 101 05/09/16 11:24 98.3 105 18 124/88 94 05/09/16 11:05 95 Room Air 05/09/16 11:00 99 05/09/16 10:10 16 05/09/16 10:00 101 05/09/16 09:00 97 05/09/16 08:00 115 05/09/16 07:46 98.1 105 16 141/93 92 05/09/16 07:46 93 Room Air 05/09/16 07:00 116 05/09/16 05:00 108 05/09/16 04:00 115 05/09/16 04:00 92 Room Air 05/09/16 04:00 98.0 105 16 130/85 92 05/09/16 03:00 112 05/09/16 02:00 125 05/09/16 01:00 102 05/09/16 00:05 94 Room Air 05/09/16 00:00 97.9 104 16 129/90 95 05/09/16 00:00 105 05/08/16 23:00 112 05/08/16 22:00 138 05/08/16 21:19 92 21 05/08/16 21:00 114 05/08/16 20:10 94 Room Air 05/08/16 20:00 116 05/08/16 20:00 97.5 101 16 138/86 95 05/08/16 19:00 100 05/08/16 18:00 106 05/08/16 17:23 97.8 98 16 126/77 97 05/08/16 17:00 102 05/08/16 15:00 98.6 97 18 118/74 96 05/08/16 15:00 97 05/08/16 15:00 94 Nasal Cannula Humidified 05/08/16 15:00 97 05/08/16 14:02 98.3 90 17 120/73 97 I/O 4/1/17 05/08/16 05/08/16 05/09/16 05/09/16 05/09/16 07:00 15:00 23:00 07:00 15:00 23:00 Intake Total 480 ml 1630 ml 480 ml Output Total 655 ml 300 ml 1400 ml Balance -175 ml 1330 ml -920 ml Intake Oral 480 ml 650 ml 480 ml IV Total 980 ml Output Urine Total 505 ml 140 ml 1300 ml Drainage Total 150 ml 160 ml 100 ml Bladder Scan Volume Amount 820 ml 900 ml # Bowel Movements 0 0 0 Result Diagram: 05/09/16 0450 05/09/16 0450 Objective Remarks GENERAL: This is a well-nourished, well-developed patient, in nad CARDIOVASCULAR: Regular rate and rhythm without murmurs, gallops, or rubs. RESPIRATORY: Fair entry bilaterally. No wheezes, rales, or rhonchi. Chest tube in place GASTROINTESTINAL: Abdomen soft, non-tender, nondistended. Normal active bowel sounds MUSCULOSKELETAL: Extremities without clubbing, cyanosis, or edema. NEURO: AAox3 , moves all exts A/P Assessment and Plan 05/08: pt off all drips , doing better clinically however , WBC inc 14k w left shift, cxr showed bibasilar airspace disease >>[facility] , will started on levaquin 750 mg daily , gave one dose of vanco , prophylactically for suspect PNA HAP/VAP recheck cbc, bmp, bnp in am 05/09: No clinical sign of pneumonia will continue on Levaquin, WBC dropped 14.6- 11.8, tachycardic around 100 will defer increasing beta ashu for a cardiovascular surgeo Consult urology and inserted Mccray for urinary obstruction A/P: 66 years old male admitted with multiple vessels CAD w non-STEMI Hypertension Hyperlipidemia Urinary obstruction postop with H/O BPH History of gout DVT prophylaxis Plan: Urology consulted, Mccray inserted bladder scan showed 1200 Condition initially placed on aspirin, heparin drip, Consult cardiology appreciated their help, status post heart catheter this morning found 3 vessels CAD, CVS consulted patient had CABG this morning, post op management per CVS team Continue statin , Lopressor, isosorbide, continue aspirin 2-D echo, low dose MARIVEL inhibitor at discharge Flomax 4 BPH Allopurinol for gout DVT prophylaxis with SCD patient was on heparin drip Fiorella Adame MD May 09, 2016 13:56
--- NOTE | 2016-05-09 18:42 | PD.CONS ---
HPI Service Urology Consult Requested By Reason for Consult Retention Primary Care Physician Chin Workman MD Diagnosis: History of Present Illness 66yo male s/p CABG now with post-op urinary retention. Patient reports prior to his surgery he was having difficulty voiding with a slow weak stream and nocturia. He has been on flomax with some benefit in his urinary symptoms. Post- op his catheter was removed however he was unable to void. Therefore a catheter was replaced with over 1.2 liters removed. Patient reports he was in signficant discomfort prior to catheter placement. Currently doing well, no hematuria. Review of Systems ROS Limitations: Clinical Condition Constitutional: DENIES: Fever Endocrine: DENIES: Polyuria Eyes: DENIES: Diplopia Ears, nose, mouth, throat: DENIES: Tinnitus Respiratory: DENIES: Cough Cardiovascular: DENIES: Chest pain Gastrointestinal: DENIES: Abdominal pain Genitourinary: COMPLAINS OF: Urinary frequency, Urgency, Nocturia, DENIES: Hematuria, Dysuria Integumentary: DENIES: Rash Hematologic/lymphatic: DENIES: Bruising Neurologic: DENIES: Headache Psychiatric: DENIES: Anxiety Except as stated in HPI: all other systems reviewed are Neg Past Family Social History Past Medical History HTN Hyperlipidemia BPH Past Surgical History CABG Reported Medications Reported Meds & Active Scripts Active Reported Milk Thistle 250 Mg Cap 1 Cap PO DAILY Allopurinol 300 Mg Tab 300 Mg PO BID Flomax (Tamsulosin HCl) 0.4 Mg Cap 0.4 Mg PO DAILY Metoprolol Tartrate 25 Mg Tab 25 Mg PO BID Pravastatin 40 Mg Tab 40 Mg PO DAILY Prilosec (Omeprazole) 20 Mg Cap 20 Mg PO DAILY Nitrostat SL (Nitroglycerin) 0.4 Mg Subl 0.4 Mg SL DIRECTED PRN 1 tablet under the tongue as needed for chest pain. Repeat every 5 minutes for a total of 3 DOSES or call 911 if NO relief. Isosorbide Mononitrate ER (Isosorbide Mononitrate) 30 Mg Oscar 30 Mg PO DAILY Aspirin 81 Mg Tabdr 81 Mg PO DAILY Allergies: Coded Allergies: Lisinopril (Unverified Allergy, Severe, ANGIOEDEMA, 05/05/16) Active Ordered Medications Current Medications Medications (Trade) Dose Ordered Sig/Monique Route Start Time Stop Time Status Last Admin (02/08 NS 1000 ml Inj) 1,000 ml @ 75 mls/hr [id number] IV 05/05/16 23:54 05/06/16 00:26 (Dulcolax Supp) 10 mg DAILY PRN RECTAL 05/06/16 00:00 (Milk Of Magnesia Liq) 30 ml Q12H PRN PO 05/06/16 00:00 (Senokot) 17.2 mg Q12H PRN PO 05/06/16 00:00 (Narcan Inj) 0.4 mg UNSCH PRN IV 05/06/16 00:00 (Zyloprim) 300 mg BID PO 05/06/16 09:00 05/09/16 21:18 (Ecotrin Ec) 81 mg DAILY PO 05/06/16 09:00 05/09/16 08:35 (Pravachol) 40 mg DAILY PO 05/06/16 09:00 05/09/16 08:37 (Flomax) 0.4 mg DAILY PO 05/06/16 09:00 05/09/16 08:34 (Protonix) 20 mg DAILY PO 05/06/16 09:00 05/09/16 08:36 (NS Flush) 2 ml BID IV FLUSH 05/06/16 21:00 05/09/16 08:36 (NS Flush) 2 ml UNSCH PRN IV FLUSH 05/06/16 12:15 Sodium Chloride 2 ml 2 ml BID IV FLUSH 05/07/16 21:00 05/08/16 21:00 Clevidipine 50 ml @ 0 mls/hr TITRATE IV 05/07/16 11:00 (Lr 1000 ml Inj) 500 ml @ 500 mls/hr Q1H PRN IV 05/07/16 11:00 (Cordarone) 200 mg Q12HR PO 05/07/16 21:00 05/09/16 21:18 (Tylenol) 650 mg Q4H PRN PO 05/07/16 11:00 (Tylenol Supp) 650 mg Q4H PRN RECTAL 05/07/16 11:00 (Percocet 5-325 Mg) 1 tab Q3H PRN PO 05/07/16 11:00 05/09/16 17:46 (fentaNYL INJ) 25 mcg Q1H PRN IV 05/07/16 11:00 05/09/16 19:34 (Zofran Inj) 4 mg Q6H PRN IV PUSH 05/07/16 11:00 05/08/16 19:12 (Apresoline Inj) 10 mg Q4H PRN IV 05/07/16 11:00 Metoprolol Tartrate 2.5 mg 2.5 mg Q1H PRN IV PUSH 05/07/16 11:00 05/09/16 21:19 Potassium Chloride 100 ml @ 50 mls/hr UNSCH PRN IV 05/07/16 11:00 05/07/16 14:32 Potassium Chloride 100 ml @ 50 mls/hr UNSCH PRN IV 05/07/16 11:00 Potassium Chloride 100 ml @ 50 mls/hr UNSCH PRN IV 05/07/16 11:00 Magnesium Sulfate 2 gm/Sodium Chloride 104 ml @ 100 mls/hr UNSCH PRN IV 05/07/16 11:00 Magnesium Sulfate 2 gm/Sodium Chloride 104 ml @ 50 mls/hr UNSCH PRN IV 05/07/16 11:00 (Calcium Chloride Inj/NS Inj) 110 ml @ 100 mls/hr UNSCH PRN IV 05/07/16 11:00 Calcium Chloride 0.5 gm 0.5 gm UNSCH PRN IV 05/07/16 11:00 (NovoLIN R (IV INFUSION)/NS Inj) 100 ml @ 0 mls/hr TITRATE IV 05/07/16 11:00 05/08/16 05:48 (D50w (Vial) Inj) 25 ml UNSCH PRN IV PUSH 05/07/16 11:00 (Colace) 100 mg BID PO 05/08/16 21:00 05/09/16 21:18 (Theragran M Tab) 1 tab DAILY PO 05/09/16 09:00 05/09/16 08:34 (Lipitor) 40 mg DAILY PO 05/09/16 09:00 05/09/16 08:35 (Milk Of Magnesia Liq) 30 ml DAILY PO 05/09/16 09:00 05/09/16 08:33 (Miralax) 17 gm DAILY PO 05/09/16 09:00 05/09/16 08:33 (Senokot) 8.6 mg HS PO 05/08/16 21:00 05/09/16 21:18 (Fleets Enema (Adult)) 133 ml UNSCH PRN RECTAL 05/08/16 09:30 (Lopressor) 12.5 mg BID PO 05/08/16 21:00 05/09/16 21:18 (NovoLOG SUPPLEMENTAL SCALE) 1 02,06,10,14,18,22 SQ 05/08/16 10:00 05/09/16 11:17 (D50w (Vial) Inj) 25 ml UNSCH PRN IV 05/08/16 09:30 (Glucagon Inj) 1 mg UNSCH PRN OTHER 05/08/16 09:30 Miscellaneous 1 ea 1 ea UNSCH PRN OTHER 05/08/16 09:45 (Levaquin 750 Mg Premix Inj) 150 ml @ 100 mls/hr Q24H IV 05/08/16 10:00 05/09/16 08:32 Family History Family history reviewed and noncontributory to present illness Social History No tobacco or ETOH use Physical Exam Vital Signs Date Time Temp Pulse Resp B/P Pulse Ox O2 Delivery O2 Flow Rate FiO2 05/09/16 18:00 109 05/09/16 17:00 104 05/09/16 16:00 108 05/09/16 15:08 95 Room Air 05/09/16 15:04 98.0 110 18 138/86 95 05/09/16 15:00 120 05/09/16 14:00 105 05/09/16 13:00 102 05/09/16 12:00 101 05/09/16 11:24 98.3 105 18 124/88 94 05/09/16 11:05 95 Room Air 05/09/16 11:00 99 05/09/16 10:10 16 05/09/16 10:00 101 05/09/16 09:00 97 05/09/16 08:25 20 05/09/16 08:25 20 05/09/16 08:00 115 05/09/16 07:46 98.1 105 16 141/93 92 05/09/16 07:46 93 Room Air 05/09/16 07:00 116 05/09/16 05:00 108 05/09/16 04:00 115 05/09/16 04:00 92 Room Air 05/09/16 04:00 98.0 105 16 130/85 92 05/09/16 03:00 112 05/09/16 02:00 125 05/09/16 01:00 102 05/09/16 00:05 94 Room Air 05/09/16 00:00 97.9 104 16 129/90 95 05/09/16 00:00 105 05/08/16 23:00 112 05/08/16 22:00 138 05/08/16 21:19 92 21 05/08/16 21:00 114 05/08/16 20:10 94 Room Air 05/08/16 20:00 116 05/08/16 20:00 97.5 101 16 138/86 95 05/08/16 19:00 100 Physical Exam GENERAL: This is a well-nourished, well-developed patient, in no apparent distress. SKIN: No rashes, ecchymoses or lesions. Cool and dry. HEAD: Atraumatic. Normocephalic. EYES: Extraocular motions intact. No scleral icterus. No injection or drainage. ENT: Nose without bleeding, purulent drainage. Airway patent. NECK: Trachea midline. No JVD or lymphadenopathy. CARDIOVASCULAR: Normal pulses, midline sternotomy dressings in place RESPIRATORY: nonlabored GASTROINTESTINAL: Abdomen soft, non-tender, nondistended. GENITOURINARY: Mccoy catheter in place, clear yellow urine MUSCULOSKELETAL: Extremities without clubbing, cyanosis, or edema. NEUROLOGICAL: Awake and alert. Motor and sensory grossly within normal limits. Normal speech. Lab results reviewed: Yes Laboratory Tests Test 05/09/16 04:50 White Blood Count 11.8 Red Blood Count 4.08 Hemoglobin 12.2 Hematocrit 36.9 Mean Corpuscular Volume 90.4 Mean Corpuscular Hemoglobin 29.8 Mean Corpuscular Hemoglobin 33.0 Concent Red Cell Distribution Width 14.4 Platelet Count 185 Mean Platelet Volume 8.1 Neutrophils (%) (Auto) 78.9 Lymphocytes (%) (Auto) 11.2 Monocytes (%) (Auto) 9.4 Eosinophils (%) (Auto) 0.2 Basophils (%) (Auto) 0.3 Neutrophils # (Auto) 9.3 Lymphocytes # (Auto) 1.3 Monocytes # (Auto) 1.1 Eosinophils # (Auto) 0.0 Basophils # (Auto) 0.0 CBC Comment DIFF FINAL Differential Comment Sodium Level 139 Potassium Level 3.7 Chloride Level 106 Carbon Dioxide Level 25.2 Anion Gap 8 Blood Urea Nitrogen 12 Creatinine 0.65 Estimat Glomerular Filtration 123 Rate Random Glucose 122 Calcium Level 7.7 Magnesium Level 2.1 B-Type Natriuretic Peptide 292 Result Diagram: 05/09/1644905/09/16449 Personally reviewed images: Yes Imaging Last Impressions Chest X-Ray 05/08/16 0500 Signed Impressions: Service Date/Time: Sunday, May 08, 2016 04:30 - CONCLUSION: 1. Left chest tube remains present and no pneumothorax is visualized. 2. Persistent bibasilar airspace opacity, slightly increased at the left base. Kyrie Caba MD Lower Extremity Ultrasound 05/06/16 0000 Signed Impressions: Service Date/Time: April 14:20 - CONCLUSION: 1. Venous mapping as above Xander Mckenna MD Carotid Artery Ultrasound 05/06/16 0000 Signed Impressions: Service Date/Time: April 14:01 - CONCLUSION: 1. No evidence of hemodynamically significant lesion. Xander Mckenna MD Assessment and Plan Problem List: (1) Urinary retention ICD Code: R33.9 Status: Acute Assessment and Plan -Retention likely secondary to BPH -Recommend leaving mccoy catheter in place for 1-2 weeks given the large volume after catheter placement to allow bladder recovery and continue flomax therapy -Patient may be discharged with mccoy catheter in place -Follow-up with Urology in clinic in 1-2 weeks for voiding trial. May increase flomax to BID -Please call with questions Khanh Patrick MD May 09, 2016 18:42
--- NOTE | 2016-05-09 21:10 | EKG ---
Date Performed: 05/08/2016 Time Performed: 04:52:58 PTAGE: 66 years EKG: Sinus rhythm Short CO interval Inferior infarct - age undetermined Abnormal ECG PREVIOUS TRACING : 05/06/2016 03.41 DOCTOR: Delphine Welch Interpretating Date/Time 05/09/2016 21:08:36
[2016-05-09] MEDS: SENNOSIDES 8.6 MG TAB PO SCH (21:18)
[2016-05-09] MEDS ORDERED: AMIODARONE 150 MG/D5W 97 ML BOLUS 10 MINUTES IV ONE ×2 (21:45)
[2016-05-09] MEDS ORDERED: AMIODARONE INJ 450 MG in D5W (EXCEL BAG) 241 ML IV SCH (21:45)
[2016-05-10] VITALS (28 sets, daily range): BP systolic 115–151; BP diastolic 72–85; PULSE 79–102; RESP 16–20; TEMP 98–98.4; O2SAT 95–100
[2016-05-10] MEDS: INSULIN ASPART SUPPLEMENTAL SCALE SQ SCH ×4 (02:00→13:41)
[2016-05-10] MEDS: oxyCODONE/ACETAMINOPHEN 5 MG/325 MG TAB PO PRN ×5 (05:38→21:38)
[2016-05-10] MEDS: MAGNESIUM HYDROXIDE SUSP 30 ML CUP PO SCH (08:17)
[2016-05-10] MEDS: POLYETHYLENE GLYCOL 17 GM PKG PO SCH (08:17)
[2016-05-10] MEDS: DOCUSATE SODIUM 100 MG CAP PO SCH ×2 (08:18→20:37)
[2016-05-10] MEDS: MULTIVITAMINS/MINERALS THERAPEUTIC TAB PO SCH (08:18)
[2016-05-10] MEDS: TAMSULOSIN HCL 0.4 MG CAP PO SCH (08:19)
[2016-05-10] MEDS: ASPIRIN EC 81 MG TABEC PO SCH (08:19)
[2016-05-10] MEDS: ATORVASTATIN 40 MG TAB PO SCH (08:19)
[2016-05-10] MEDS: PRAVASTATIN SOD 40 MG TAB PO SCH (08:20)
[2016-05-10] MEDS: ALLOPURINOL 300 MG TAB PO SCH ×2 (08:20→20:38)
[2016-05-10] MEDS: METOPROLOL TARTRATE 25 MG TAB PO SCH ×2 (08:20→20:38)
[2016-05-10] MEDS: PANTOPRAZOLE SOD 20 MG DELAYED RELEASE TAB PO SCH (08:21)
[2016-05-10] MEDS: SODIUM CHLORIDE 0.9% FLUSH 10 ML FLUSH IV FLUSH SCH ×4 (08:21→20:39)
[2016-05-10] MEDS: RESP: ALBUTEROL 2.5 MG/IPRATROPIUM 0.5 MG NEB (SCH) NEB (08:24)
[2016-05-10] MEDS: LEVOFLOXACIN 750 MG PREMIX INJ 150 ML IV SCH (09:22)
[2016-05-10] MEDS: SODIUM CHLOR 0.45% 1000 ML INJ 1,000 ML IV SCH ×2 (10:34→23:54)
--- NOTE | 2016-05-10 10:35 | EKG ---
Date Performed: 05/09/2016 Time Performed: 22:13:36 PTAGE: 66 years EKG: Sinus tachycardia Short FL interval Inferior infarct - age undetermined Abnormal ECG PREVIOUS TRACING : 05/08/2016 04.52 DOCTOR: Ruslan Nelson Interpretating Date/Time 05/10/2016 10:33:06
--- NOTE | 2016-05-10 11:49 | PD.CAR.PN ---
CVT Progress Note CVT: POD #: 3 Subjective/Hospital Course: sts data discussed with pt RISK SCORES About the STS Risk Calculator Procedure: CAB Only Risk of Mortality: 0.677% Morbidity or Mortality: 9.53% Long Length of Stay: 2.937% Short Length of Stay: 56.82% Permanent Stroke: 0.813% Prolonged Ventilation: 6.54% DSW Infection: 0.35% Renal Failure: 1.427% Reoperation: 4.132% 05/07 Procedure: CABG x 3 HICKS to LAD - good SVG to OM- good SVG to D1 - fair EVH 05/08 Doing well Extubated and tolerating Transfer telemetry Ambulate CT to drainage 05/09 Having issues with urinary retention. Restarted Flomax Maintain CT to drainage Ambulate 05/10/16 No complaints. Doing well. Mccray in Objective: Vital Signs Date Time Temp Pulse Resp B/P Pulse Ox O2 Delivery O2 Flow Rate FiO2 05/10/16 11:00 92 05/10/16 10:00 92 05/10/16 09:21 20 05/10/16 09:00 93 05/10/16 08:26 95 05/10/16 08:00 96 05/10/16 08:00 98.3 96 20 126/77 100 05/10/16 07:37 100 Room Air 05/10/16 07:00 85 05/10/16 06:00 90 05/10/16 05:00 82 05/10/16 04:20 96 Room Air 05/10/16 04:00 98.0 89 18 119/73 95 05/10/16 04:00 85 05/10/16 03:00 90 05/10/16 02:00 89 05/10/16 01:00 90 05/10/16 00:02 94 Room Air 05/10/16 00:00 98.3 90 18 115/73 95 05/10/16 00:00 89 05/09/16 23:02 95 05/09/16 23:00 90 05/09/16 22:00 106 05/09/16 21:48 124/81 05/09/16 21:00 106 05/09/16 20:24 94 21 05/09/16 20:05 94 Room Air 05/09/16 20:00 99 05/09/16 20:00 98.0 103 18 126/77 94 05/09/16 19:00 101 05/09/16 18:00 109 05/09/16 17:00 104 05/09/16 16:00 108 05/09/16 15:08 95 Room Air 05/09/16 15:04 98.0 110 18 138/86 95 05/09/16 15:00 120 05/09/16 14:00 105 05/09/16 13:00 102 05/09/16 12:00 101 Result Diagram: 05/09/16 0450 05/09/16 0450 Cardiovascular: RRR Telemetry: NSR Pulmonary: CTA GI/: NABS, NT Incision: dry and intact CT: 50/12 hrs Plan: D/C chest tubes Add proscar Increase BB D/C albuterol D/C levaquin Increase amio dose D/C lipitor - already on pravastatin D/C home tomorrow Tila Su MD May 10, 2016 11:49
--- NOTE | 2016-05-10 13:50 | HHI.PR ---
Subjective Remarks Patient doing well sitting on the chair talking to the safety assistant of cardiovascular Dr. Randall Chest tube is out, per the [facility] patient may be able to go tomorrow if continued to be stable He denied any cough or short of breath or chest pain now Objective Vitals Vital Signs Date Time Temp Pulse Resp B/P Pulse Ox O2 Delivery O2 Flow Rate FiO2 05/10/16 13:00 85 05/10/16 12:00 84 05/10/16 11:55 98 Room Air 05/10/16 11:53 98.3 96 20 120/78 100 05/10/16 11:00 92 05/10/16 10:00 92 05/10/16 09:21 20 05/10/16 09:00 93 05/10/16 08:26 95 05/10/16 08:00 96 05/10/16 08:00 98.3 96 20 126/77 100 05/10/16 07:37 100 Room Air 05/10/16 07:00 85 05/10/16 06:00 90 05/10/16 05:00 82 05/10/16 04:20 96 Room Air 05/10/16 04:00 98.0 89 18 119/73 95 05/10/16 04:00 85 05/10/16 03:00 90 05/10/16 02:00 89 05/10/16 01:00 90 05/10/16 00:02 94 Room Air 05/10/16 00:00 98.3 90 18 115/73 95 05/10/16 00:00 89 05/09/16 23:02 95 05/09/16 23:00 90 05/09/16 22:00 106 05/09/16 21:48 124/81 05/09/16 21:00 106 05/09/16 20:24 94 21 05/09/16 20:05 94 Room Air 05/09/16 20:00 99 05/09/16 20:00 98.0 103 18 126/77 94 05/09/16 19:00 101 05/09/16 18:00 109 05/09/16 17:00 104 05/09/16 16:00 108 05/09/16 15:08 95 Room Air 05/09/16 15:04 98.0 110 18 138/86 95 05/09/16 15:00 120 05/09/16 14:00 105 I/O 05/09/16 05/09/16 05/09/16 05/10/16 05/10/16 05/10/16 07:00 15:00 23:00 07:00 15:00 23:00 Intake Total 480 ml 1125 ml 480 ml Output Total 1400 ml 3260 ml 2050 ml Balance -920 ml -2135 ml -1570 ml Intake Oral 480 ml 975 ml 480 ml IV Total 150 ml Output Urine Total 1300 ml 3110 ml 2000 ml Drainage Total 100 ml 150 ml 50 ml Bladder Scan Volume Amount 820 ml 900 ml # Bowel Movements 0 0 Result Diagram: 05/09/16 0450 05/09/16 0450 Objective Remarks GENERAL: This is a well-nourished, well-developed patient, in nad CARDIOVASCULAR: Regular rate and rhythm without murmurs, gallops, or rubs. RESPIRATORY: Fair entry bilaterally. No wheezes, rales, or rhonchi. Chest tube in place GASTROINTESTINAL: Abdomen soft, non-tender, nondistended. Normal active bowel sounds MUSCULOSKELETAL: Extremities without clubbing, cyanosis, or edema. NEURO: AAox3 , moves all exts A/P Assessment and Plan 05/08: pt off all drips , doing better clinically however , WBC inc 14k w left shift, cxr showed bibasilar airspace disease >>pt on cefazolin by the [facility] , will started on levaquin 750 mg daily , gave one dose of vanco , prophylactically for suspect PNA HAP/VAP recheck cbc, bmp, bnp in am 05/09: No clinical sign of pneumonia will continue on Levaquin, WBC dropped 14.6- 11.8, tachycardic around 100 will defer increasing beta ashu for a cardiovascular surgeo Consult urology and inserted Mccray for urinary obstruction 05/10: Per [facility] patient can be discharged tomorrow if continued to be stable from their standpoint, Appreciate neurology consultation, recommending keeping Mccray even after discharge, patient follow up in 1-2 weeks A/P: 66 years old male admitted with multiple vessels CAD w non-STEMI Hypertension Hyperlipidemia Urinary obstruction postop with H/O BPH History of gout DVT prophylaxis Plan: Appreciate neurology consultation, Mccray inserted bladder scan showed 1200, keep Mccray after discharge follow up with urology in 1-2 weeks Condition initially placed on aspirin, heparin drip, Consult cardiology appreciated their help, status post heart catheter this morning found 3 vessels CAD, [facility]S consulted patient had CABG this morning, post op management per CVS team Continue statin , Lopressor, isosorbide, continue aspirin 2-D echo, low dose MARIVEL inhibitor at discharge Flomax 4 BPH Allopurinol for gout DVT prophylaxis with SCD patient was on heparin drip Fiorella Adame MD May 10, 2016 13:50
[2016-05-10] MEDS: SENNOSIDES 8.6 MG TAB PO SCH (20:37)
[2016-05-10] MEDS: AMIODARONE 200 MG TAB PO SCH (20:38)
[2016-05-11] VITALS (19 sets, daily range): BP systolic 121–126; BP diastolic 74–77; PULSE 72–94; RESP 16–18; TEMP 97.9–98.2; O2SAT 93–99
[2016-05-11] MEDS: oxyCODONE/ACETAMINOPHEN 5 MG/325 MG TAB PO PRN ×3 (01:53→15:55)
[2016-05-11 06:20] LABS: MEAN CELL VOLUME 90.2 FL (80.0-100.0); MEAN CORPUSCULAR HEMOGLOBIN 31.2 PG (27.0-34.0); MEAN CORPUSCULAR HGB CONC 34.6 % (32.0-36.0); PLATELET COUNT 249 TH/MM3 (150-450); RED BLOOD COUNT 3.88 MIL/MM3 (4.50-5.90); RED CELL DISTRIBUTION WIDTH 14.3 % (11.6-17.2); REVIEW FLAG FINAL; WHITE BLOOD COUNT 7.9 TH/MM3 (4.0-11.0)
--- NOTE | 2016-05-11 08:48 | RSPPFT ---
DATE OF PROCEDURE: 05/06/16 COMMENTS: VOLUMES DYNAMIC: FVC and FEV1 normal. FLOWS: FEV1% and FEF 25-75 normal. IMPRESSION: Normal simple spirometry.
[2016-05-11] MEDS: SODIUM CHLORIDE 0.9% FLUSH 10 ML FLUSH IV FLUSH SCH ×2 (09:00→09:22)
[2016-05-11] MEDS: ALLOPURINOL 300 MG TAB PO SCH (09:21)
[2016-05-11] MEDS: TAMSULOSIN HCL 0.4 MG CAP PO SCH (09:21)
[2016-05-11] MEDS: MULTIVITAMINS/MINERALS THERAPEUTIC TAB PO SCH (09:21)
[2016-05-11] MEDS: PRAVASTATIN SOD 40 MG TAB PO SCH (09:21)
[2016-05-11] MEDS: PANTOPRAZOLE SOD 20 MG DELAYED RELEASE TAB PO SCH (09:21)
[2016-05-11] MEDS: METOPROLOL TARTRATE 25 MG TAB PO SCH (09:22)
[2016-05-11] MEDS: DOCUSATE SODIUM 100 MG CAP PO SCH (09:22)
[2016-05-11] MEDS: ASPIRIN EC 81 MG TABEC PO SCH (09:22)
[2016-05-11] MEDS: MAGNESIUM HYDROXIDE SUSP 30 ML CUP PO SCH (09:22)
[2016-05-11] MEDS: AMIODARONE 200 MG TAB PO SCH (09:22)
[2016-05-11] MEDS: POLYETHYLENE GLYCOL 17 GM PKG PO SCH (09:24)
[2016-05-11] MEDS ORDERED: OXYC1TAB63 PO (09:50)
--- NOTE | 2016-05-11 09:59 | HHI.PR ---
Subjective Remarks Patient very well, no chest pain or shortness of breath, very pleasant Patient is happy to go home Objective Vitals Vital Signs Date Time Temp Pulse Resp B/P Pulse Ox O2 Delivery O2 Flow Rate FiO2 05/11/16 09:39 93 05/11/16 08:00 98.2 88 16 121/77 99 05/11/16 07:29 93 21 05/11/16 07:13 86 05/11/16 06:00 85 05/11/16 05:00 83 05/11/16 04:16 80 05/11/16 03:00 84 05/11/16 03:00 98.1 79 16 124/74 96 05/11/16 02:00 80 05/11/16 01:00 93 05/11/16 00:00 81 05/10/16 23:00 98.0 87 16 137/84 97 05/10/16 23:00 79 05/10/16 22:00 82 05/10/16 21:00 102 05/10/16 20:00 98 05/10/16 19:18 95 21 05/10/16 19:00 98.4 97 16 151/85 95 05/10/16 19:00 84 05/10/16 18:00 87 05/10/16 17:52 21 05/10/16 17:00 96 05/10/16 16:00 90 05/10/16 15:44 99 Room Air 05/10/16 15:40 98.0 82 20 118/72 99 05/10/16 15:00 85 05/10/16 14:00 83 05/10/16 13:00 85 05/10/16 12:00 84 05/10/16 11:55 98 Room Air 05/10/16 11:53 98.3 96 20 120/78 100 05/10/16 11:00 92 05/10/16 10:00 92 I/O 05/10/16 05/10/16 05/10/16 05/11/16 05/11/16 05/11/16 07:00 15:00 23:00 07:00 15:00 23:00 Intake Total 480 ml 1350 ml 480 ml Output Total 2050 ml 1250 ml 700 ml Balance -1570 ml 100 ml -220 ml Intake Oral 480 ml 1025 ml 480 ml IV Total 325 ml Output Urine Total 2000 ml 1250 ml 700 ml Drainage Total 50 ml # Bowel Movements 0 Result Diagram: 05/11/16 0541 05/09/16 0450 Objective Remarks GENERAL: This is a well-nourished, well-developed patient, in nad CARDIOVASCULAR: Regular rate and rhythm without murmurs, gallops, or rubs. RESPIRATORY: Fair entry bilaterally. No wheezes, rales, or rhonchi. Chest tube in place GASTROINTESTINAL: Abdomen soft, non-tender, nondistended. Normal active bowel sounds MUSCULOSKELETAL: Extremities without clubbing, cyanosis, or edema. NEURO: AAox3 , moves all exts A/P Assessment and Plan 05/08: pt off all drips , doing better clinically however , WBC inc 14k w left shift, cxr showed bibasilar airspace disease >>pt on cefazolin by the [facility] , will started on levaquin 750 mg daily , gave one dose of vanco , prophylactically for suspect PNA HAP/VAP recheck cbc, bmp, bnp in am 05/09: No clinical sign of pneumonia will continue on Levaquin, WBC dropped 14.6- 11.8, tachycardic around 100 will defer increasing beta ashu for a cardiovascular surgeo Consult urology and inserted Mccray for urinary obstruction 05/10: Per [facility] patient can be discharged tomorrow if continued to be stable from their standpoint, Appreciate neurology consultation, recommending keeping Mccray even after discharge, patient follow up in 1-2 weeks 05/11: Doing very well, I discussed with [facility] PAINT STOCK CLERK, patient cleared by them for discharge he will go with a Mccray catheter, he denied any chest and or short of breath or cough today. A/P: 66 years old male admitted with multiple vessels CAD w non-STEMI Hypertension Hyperlipidemia Urinary obstruction postop with H/O BPH History of gout DVT prophylaxis Plan: Appreciate neurology consultation, Mccray inserted bladder scan showed 1200, keep Mccray after discharge follow up with urology in 1-2 weeks Condition initially placed on aspirin, heparin drip, Consult cardiology appreciated their help, status post heart catheter this morning found 3 vessels CAD, [facility] consulted patient had CABG this morning, post op management per [facility] team Continue statin , Lopressor, isosorbide, continue aspirin 2-D echo, low dose MARIVEL inhibitor at discharge Flomax 4 BPH Allopurinol for gout DVT prophylaxis with SCD patient was on heparin drip WendiBarros MD May 11, 2016 09:59
--- NOTE | 2016-05-11 10:01 | HHI.DS ---
Discharge Summary Admission Date May 05, 2016 at 23:56 Discharge Date: May 11, 2016 Admitting Diagnosis ACS (1) Hyperlipidemia ICD Code: E78.5 (2) Chest pain ICD Code: R07.9 (3) Hypertension ICD Code: I10 (4) Urinary retention ICD Code: R33.9 (5) Multiple vessel coronary artery disease ICD Code: I25.10 (6) S/P CABG (coronary artery bypass graft) ICD Code: Z95.1 Procedures Nuclear stress test, left heart catheter, CABG Brief History - From Admission 66 years old male with past medical history of hypertension hyperlipidemia presented to the ED at [facility] last night with a complaint of left arm numbness and chest heaviness accompanied on by short of breath lightheadedness, and sweatiness. Troponin increased slightly, EKG showed sinus rhythm with inferior Q waves as well as ST depressions, patient started on heparin drip atient transferred to [facility] for heart catheter which he had this morning. Initially patient stated he had these chest pain episode 3 weeks ago for which he followed with Dr. Lea, him and his told me patient had a stress test which came back negative. I saw the patient around 12:30 he was having 2-D echo of the heart, he got his chest pain is gone, and family were at the bedside CBC/BMP: 05/11/16 0541 05/09/16 0450 Significant Findings Laboratory Tests Test 05/09/16 05/11/16 04:50 05:41 White Blood Count 11.8 TH/MM3 (4.0-11.0) Red Blood Count 4.08 MIL/MM3 3.88 MIL/MM3 (4.50-5.90) (4.50-5.90) Hemoglobin 12.2 GM/DL 12.1 GM/DL (13.0-17.0) (13.0-17.0) Hematocrit 36.9 % 35.0 % (39.0-51.0) (39.0-51.0) Neutrophils (%) (Auto) 78.9 % (16.0-70.0) Monocytes (%) (Auto) 9.4 % (0.0-8.0) Neutrophils # (Auto) 9.3 TH/MM3 (1.8-7.7) Monocytes # (Auto) 1.1 TH/MM3 (0-0.9) Random Glucose 122 MG/DL (74-106) Calcium Level 7.7 MG/DL (8.5-10.1) B-Type Natriuretic Peptide 292 PG/ML (0-100) PE at Discharge GENERAL: This is a well-nourished, well-developed patient, in nad CARDIOVASCULAR: Regular rate and rhythm without murmurs, gallops, or rubs. RESPIRATORY: Fair entry bilaterally. No wheezes, rales, or rhonchi. Chest tube in place GASTROINTESTINAL: Abdomen soft, non-tender, nondistended. Normal active bowel sounds MUSCULOSKELETAL: Extremities without clubbing, cyanosis, or edema. NEURO: AAox3 , moves all exts Hospital Course 66 years old male admitted for chest pain he has a history of hypertension hyperlipidemia BPH and gout, cardiology consulted, ACS workup initiated, patient had a stress test nuclear which came back positive, patient went to heart catheter he was found to have multiple vessels coronary artery disease, and vascular surgeon consulted patient had CABG, doing very well postop except for worsening urinary obstruction, urology consulted Mccray inserted, urology recommended keeping Mccray for 2 weeks and follow up as an outpatient. Postop x- ray showed bibasilar airspace disease patient placed prophylactically on Levaquin, he did well antibiotics stopped. Patient will be discharged home to follow up as an outpatient with cardiology, cardiovascular surgery, and urology. [id number] encounter performed with the patient on discharge day, as well as physical exam, summary of hospitalization course and postdischarge plan has been D/W the patient. D/W nurse D/W [facility] DRYING TUMBLER OPERATOR, she will manage his amiodarone tapering Discharge medications reviewed and printed and signed, post discharge follow up visit with PCP and other specialist as well as Brief hospital course and discharge summary has been placed. Pt Condition on Discharge: Fair Discharge Disposition: Discharge Home Discharge Time: > 30 minutes Discharge Instructions DIET: Follow Instructions for: Heart Healthy Diet Activities you can perform: Weight Bearing as Carmella Follow up Referrals: Cardiology @ [facility] with Ruslan Nelson MD PCP Follow-up Surgical with Tila Su MD Urology - 2 Weeks with Khanh Patrick MD New Medications: Oxycodone-Acetaminophen (Oxycodone-Acetaminophen) 5-325 mg Tab 1 TAB PO Q3H PRN PAIN SCALE 1 TO 5 #30 TAB Continued Medications: Allopurinol (Allopurinol) 300 Mg Tab 300 MG PO BID Gout #30 Ref 0 TAB Aspirin (Aspirin) 81 Mg Tabdr 81 MG PO DAILY TAB Metoprolol Tartrate (Metoprolol Tartrate) 25 Mg Tab 25 MG PO BID #60 Ref 0 TAB Omeprazole (Prilosec) 20 Mg Cap 20 MG PO DAILY #30 Ref 0 CAP Pravastatin (Pravastatin) 40 Mg Tab 40 MG PO DAILY Cholesterol Management #30 Ref 0 TAB Tamsulosin (Flomax) 0.4 Mg Cap 0.4 MG PO DAILY Manage Prostate Problems #30 Ref 0 CAP Fiorella Adame MD May 11, 2016 10:01
[2016-05-11] MEDS ORDERED: SENN8.6T15 PO (10:32)
[2016-05-11] MEDS ORDERED: AMIO200T PO (10:32)
--- NOTE | 2016-05-11 10:46 | HHI.FF ---
Face to Face Verification Diagnosis: (1) CAD (coronary artery disease) (2) Acute coronary syndrome (3) Urinary retention (4) Hypertension (5) S/P CABG (coronary artery bypass graft) Home Health Nursing Order: Signs/symptoms of disease process Wound care and dressing changes Mccray catheter maintenance Instructions: Heart and Vascular Surgery patients *Special attention to sternal dressing Mandatory frequency Assess and evaluation, 4 days in a row The next week 3X week 2 times a week for 4 weeks 1 time a week for 5 weeks Schedule Heart and Vascular patients for full 60 day certification period Initial visit Review Open Heart Surgery Discharge Instructions (Sternal precautions, Activity, Elastic hose, Incision care, Driving, Incentive spirometry, Smoking, [place], Work and other) Need Betadine to paint incision Medication reconciliation Importance of follow up care/ check on appointments Make calendar record temperature daily When to call [facility] at Home nurse, review instructions, phone list Incentive Spirometry, demonstration Visit 1- Begin discharge instruction for patient family and/ or caregiver using teach back method- Signs and symptoms of infection Disease characteristics Medicines and side effects Foods and nutrition/ appetite Infection control/ hand washing/ hygiene Visit 2- Continue teaching Discharge instructions- include additional information on smoking cessation , sternal dressing (sternal vac) Visit 3- Continue teaching- Cough and deep breathing, incision monitoring. Choose my plate Visit 4- Continue teaching- Discuss limitations Discuss how they are feeling Discuss progress toward goals Remaining visits- continue teaching and monitoring Incentive spirometry Q1 hr x 10, while awake, also use acapella device hourly whole awake Sternal Breast Bone Precautions: NO pushing or pulling, ( pt must use sternal pillow to support chest with all activities and with coughing ( takes up to 3 months breast bone to heal ) Daily incision care: ok to shower daily, no tub bath. Wash all incisions with liquid dial soap, clean wash cloth to each site, rinse and pat dry. Observe for any signs of infection, such as drainage which is dark yellow, mantilla, green or foul smelling. Immediately report to the surgeon any drainage from the chest incision, or legs, and for any abnormal drainage from the chest tube sites. Notify surgeon if any temp >101.5 degrees F. When specialty dressing removed/ or if you do not have one, continue to shower daily as above, then rinse and pat incision dry and paint with betadine daily x 5 days. Allow steri strips to fall off if you have any. Avoid lotions, creams, salves, oils, etc. for the first month Please see attached forms for additional instructions regarding post Open Heart specialty wound vacuum dressings. EDDIE or Prevena , Dressing to be removed by Nursing staff on _05/14/[address] Su patients , please obtain CBC, BMP, PA & Lat CXR in 2 weeks, results to Dr. Su ( prescription will be given) ( ) (Tele: [phone]) , F/U appointment: as per DC instructions: PCP in 2 weeks, CV surgeon 2 weeks, [place] 3-4 weeks For any questions regarding incisions/ dressing / meds / post op care or above Symptoms, Tuesday 8am-5pm Heart & Vascular Surgery Office ( Dr. Badillo & Dr. Su), After Hours / Nights (5pm -8am) Weekends and Holidays Please call [facility] Cardiac Intermediate Care Unit (CIC) Charge Nurse I have seen patient Rigoberto Romero on 05/11/16. My clinical findings support the need for the requested home health care services because: Deconditioned w/ increased weakness I certify that my clinical findings support that this patient is homebound because: Post-op weakness [facility] Eunice David May 11, 2016 10:46
--- NOTE | 2016-05-11 10:54 | PD.CAR.PN ---
CVT Progress Note Subjective/Hospital Course: 05/07 Procedure: CABG x 3 HICKS to LAD - good SVG to OM- good SVG to D1 - fair EVH 05/08 Doing well Extubated and tolerating Transfer telemetry Ambulate CT to drainage 05/09 Having issues with urinary retention. Restarted Flomax Maintain CT to drainage Ambulate 05/10/16 No complaints. Doing well. Mccoy in 05/11/16 pt doing well, possible dc home today , if pt has BM will leave mccoy cath in place send home with leg bag, has followup with Urology next week Objective: GENERAL: SKIN: Warm and dry./ prevena to chest / incision intact to leg HEAD: Normocephalic. EYES: No scleral icterus. No injection or drainage. NECK: Supple, trachea midline. No JVD or lymphadenopathy. CARDIOVASCULAR: Regular rate and rhythm without murmurs, gallops, or rubs. RESPIRATORY: Breath sounds equal bilaterally. No accessory muscle use. GASTROINTESTINAL: Abdomen soft, non-tender, nondistended. MUSCULOSKELETAL: No cyanosis, or edema. BACK: Nontender without obvious deformity. No CVA tenderness. Vital Signs Date Time Temp Pulse Resp B/P Pulse Ox O2 Delivery O2 Flow Rate FiO2 05/11/16 10:12 94 05/11/16 09:39 93 05/11/16 08:00 98.2 88 16 121/77 99 05/11/16 07:29 93 21 05/11/16 07:13 86 05/11/16 06:00 85 05/11/16 05:00 83 05/11/16 04:16 80 05/11/16 03:00 84 05/11/16 03:00 98.1 79 16 124/74 96 05/11/16 02:00 80 05/11/16 01:00 93 05/11/16 00:00 81 05/10/16 23:00 98.0 87 16 137/84 97 05/10/16 23:00 79 05/10/16 22:00 82 05/10/16 21:00 102 05/10/16 20:00 98 05/10/16 19:18 95 21 05/10/16 19:00 98.4 97 16 151/85 95 05/10/16 19:00 84 05/10/16 18:00 87 05/10/16 17:52 21 05/10/16 17:00 96 05/10/16 16:00 90 05/10/16 15:44 99 Room Air 05/10/16 15:40 98.0 82 20 118/72 99 05/10/16 15:00 85 05/10/16 14:00 83 05/10/16 13:00 85 05/10/16 12:00 84 05/10/16 11:55 98 Room Air 05/10/16 11:53 98.3 96 20 120/78 100 05/10/16 11:00 92 Labs: Laboratory Tests Test 05/11/16 05:41 White Blood Count 7.9 TH/MM3 (4.0-11.0) Red Blood Count 3.88 MIL/MM3 (4.50-5.90) Hemoglobin 12.1 GM/DL (13.0-17.0) Hematocrit 35.0 % (39.0-51.0) Mean Corpuscular Volume 90.2 FL (80.0-100.0) Mean Corpuscular Hemoglobin 31.2 PG (27.0-34.0) Mean Corpuscular Hemoglobin 34.6 % Concent (32.0-36.0) Red Cell Distribution Width 14.3 % (11.6-17.2) Platelet Count 249 TH/MM3 (150-450) Mean Platelet Volume 8.0 FL (7.0-11.0) Result Diagram: 05/11/16 0541 05/09/16 0450 Telemetry: NSR (1) Acute coronary syndrome (2) S/P CABG (coronary artery bypass graft) Plan: on ASA, statin, BB pulm toileting on room air ok to dc home with HHC , after pt has BM (3) Hyperlipidemia Plan: on statin (4) Hypertension Plan: controlled Eunice David May 11, 2016 10:54
[2016-05-11] MEDS ORDERED: BISACODYL 10 MG SUPP RECTAL ONE (11:00)
[2016-05-11] MEDS: SODIUM CHLOR 0.45% 1000 ML INJ 1,000 ML IV SCH (13:14)
== END 2016-05-11 18:35 | disposition home health service (06) | DRG 234 ==
LOC: PHED 21:58 → PHEDA 23:56 → PHEDH 05-06 03:56 → HCIN 05-06 09:24 → HCVR 05-06 17:00 → HCIN 05-08 17:38
PROVIDERS: ADMIT Hospitalist; ATTEND Hospitalist
PROC: 4A023N7 Measurement of Cardiac Sampling and Pressure, Left Heart, Percutaneous Approach (ICD-10-PCS; 2016-05-06)
PROC: B2111ZZ Fluoroscopy of Multiple Coronary Arteries using Low Osmolar Contrast (ICD-10-PCS; 2016-05-06)
PROC: B2151ZZ Fluoroscopy of Left Heart using Low Osmolar Contrast (ICD-10-PCS; 2016-05-06)
PROC: B41F1ZZ Fluoroscopy of Right Lower Extremity Arteries using Low Osmolar Contrast (ICD-10-PCS; 2016-05-06)
PROC: 02100Z9 Bypass Coronary Artery, One Artery from Left Internal Mammary, Open Approach (ICD-10-PCS; 2016-05-07)
PROC: 06BQ4ZZ Excision of Left Saphenous Vein, Percutaneous Endoscopic Approach (ICD-10-PCS; 2016-05-07)
PROC: 5A1221Z Performance of Cardiac Output, Continuous (ICD-10-PCS; 2016-05-07)
PROC: B246ZZ4 Ultrasonography of Right and Left Heart, Transesophageal (ICD-10-PCS; 2016-05-07)
PROC: 021109W Bypass Coronary Artery, Two Arteries from Aorta with Autologous Venous Tissue, Open Approach (ICD-10-PCS; principal; 2016-05-07 07:13)
DX: I21.4 Non-ST elevation (NSTEMI) myocardial infarction (principal); K76.0 Fatty (change of) liver, not elsewhere classified; J98.11 Atelectasis; N13.8 Other obstructive and reflux uropathy; I25.10 Atherosclerotic heart disease of native coronary artery without angina pectoris; I25.84 Coronary atherosclerosis due to calcified coronary lesion; I10 Essential (primary) hypertension; E78.5 Hyperlipidemia, unspecified; M10.9 Gout, unspecified; M46.92 Unspecified inflammatory spondylopathy, cervical region; N40.1 Benign prostatic hyperplasia with lower urinary tract symptoms; R33.8 Other retention of urine; Z87.891 Personal history of nicotine dependence
CPT/HCPCS: 71010; 76937; 80048; 80053; 81001; 82550; 82948; 83036; 83690; 83735; 83880; 84484; 85014; 85025; 85027; 85610; 85730; 86850; 86900; 86901; 86920; 87641; 93005; 93306; 93318; 93458; 93880; 93970; 93998; 94010; 94150; 94640; 94664; 94667; 94668; C1760; C1769; C1893; G0269; J0131; J0282; J0690; J1644; J1815; J1817; J1885; J1940; J1956; J2150; J2250; J2370; J2405; J2440; J2710; J2720; J2930; J3010; J3370; J3475; J3480; J7040; J7050; J7060; J7120; P9047; Q9967

== ENCOUNTER 2016-08-27 23:23 | Observation (INO) | payer OTHER ==
[~2016-08-27] VITALS: Ht 170.2 cm; Wt 80.0 kg
[~2016-08-27 23:23] MED LIST changes: +ALLO300T2 PO; +AMIO200T PO; +ASPI1TAB69 PO; -LOVA20TA PO; +METO25TA3 PO; +OXYC1TAB63 PO; +PRAV40TA2 PO; -PRED20 PO; +PRIL20CA9 PO; -RANI150 PO; +SENN8.6T15 PO; +TAMS5CAP PO
[2016-08-27 23:29] VITALS: BP 165/80; PULSE 84; RESP 18; O2SAT 97
[2016-08-27] MEDS ORDERED: ASPI81CH CHEW (23:41)
[2016-08-27] MEDS ORDERED: OMEP20TA PO (23:41)
[2016-08-27] MEDS ORDERED: PLAV75TA29 PO (23:41)
--- NOTE | 2016-08-27 23:44 | PD ---
HPI Chief Complaint: Chest Pain Time Seen by Provider: 23:33 Travel History International Travel<30 days: No Contact w/Intl Traveler<30days: No Traveled to known affect area: No History of Present Illness HPI Patient is a 66-year-old male with history of CABG 3, coronary disease, hypertension, hyperlipidemia, presents to emergency room complaints of chest pain. Patient reports that around 5 PM today, he began to have a sharp and stabbing pain to his left side of his chest. Patient reports that the pain is getting worse by the hour. Reports shortness of breath for the symptoms, denies diaphoresis. Denies any radiation of pain. Patient reports that nothing makes pain better or worse. Patient did have a CABG in [place] [address] Randall, his skin pass operator is Dr. Ruslan Dela Cruz. [facility] Past Medical History Cancer: No Cardiovascular Problems: Yes (CARDIAC STRESSTEST: 04/28/16 "WAS NORMAL" PER PT ) High Cholesterol: Yes Diabetes: No Diminished Hearing: Yes (BIG SANDY LT EAR) Gastrointestinal Disorders: Yes ("FATTY LIVER" PER PT) GERD: Yes Herniated Disk: Yes Hypertension: Yes Immune Disorder: No Neurologic: Yes Psychiatric: No Reproductive: No Respiratory: Yes Immunizations Current: No Myocardial Infarction: Yes Thyroid Disease: No Tetanus Vaccination: Unknown Influenza Vaccination: No Past Surgical History Coronary Artery Bypass Graft: Yes (3 way bypass) Ear Surgery: Yes (SURG FOR RUPTURED TM) Tonsillectomy: Yes Social History Alcohol Use: Yes ("3 DAYS A WEEK ON MY DAYS OFF") Tobacco Use: No (QUIT AGE 33) Substance Use: No Allergies-Medications (Allergen,Severity, Reaction): Coded Allergies: Lisinopril (Unverified Allergy, Severe, ANGIOEDEMA, 05/05/16) Reported Meds & Prescriptions Reported Meds & Active Scripts Active Amiodarone (Amiodarone HCl) 200 Mg Tab 400 Mg PO Q12HR 400mg twice a day x 3 days, then 200mg twice a day x 3 days, then 200mg daily Reported Omeprazole 20 Mg Tab 20 Mg PO DAILY Plavix (Clopidogrel Bisulfate) 75 Mg Tab 75 Mg PO DAILY Aspirin 81 Mg Chew 81 Mg CHEW DAILY Allopurinol 300 Mg Tab 300 Mg PO BID Flomax (Tamsulosin HCl) 0.4 Mg Cap 0.4 Mg PO DAILY Metoprolol Tartrate 25 Mg Tab 25 Mg PO BID Review of Systems General / Constitutional: No: Fever Eyes: No: Visual changes HENT: No: Headaches Cardiovascular: Positive: Chest Pain or Discomfort Respiratory: Positive: Shortness of Breath Gastrointestinal: No: Abdominal Pain Genitourinary: No: Dysuria Musculoskeletal: No: Pain Skin: No Rash Neurologic: No: Weakness Psychiatric: No: Depression Endocrine: No: Polydipsia Hematologic/Lymphatic: No: Easy Bruising Physical Exam Narrative GENERAL: Mild distress SKIN: Focused skin assessment warm/dry. HEAD: Atraumatic. Normocephalic. EYES: Pupils equal and round. No scleral icterus. No injection or drainage. ENT: No nasal bleeding or discharge. Mucous membranes pink and moist. NECK: Trachea midline. No JVD. CARDIOVASCULAR: Regular rate and rhythm. No murmur appreciated. RESPIRATORY: No accessory muscle use. Clear to auscultation. Breath sounds equal bilaterally. GASTROINTESTINAL: Abdomen soft, non-tender, nondistended. Hepatic and splenic margins not palpable. MUSCULOSKELETAL: No obvious deformities. No clubbing. No cyanosis. No edema. NEUROLOGICAL: Awake and alert. No obvious cranial nerve deficits. Motor grossly within normal limits. Normal speech. PSYCHIATRIC: Appropriate mood and affect; insight and judgment normal. Data Data Last Documented VS Vital Signs Date Time Temp Pulse Resp B/P Pulse Ox O2 Delivery O2 Flow Rate FiO2 08/28/16 02:00 82 19 124/80 98 Nasal Cannula 2 Orders B-Type Natriuretic Peptide (08/27/16 23:37) Ckmb (Isoenzyme) Profile (08/27/16 23:37) Complete Blood Count With Diff (08/27/16 23:37) Comprehensive Metabolic Panel (08/27/16 23:37) D-Dimer (08/27/16 23:37) Prothrombin Time / Inr (Pt) (08/27/16 23:37) Act Partial Throm Time (Ptt) (08/27/16 23:37) Troponin I (08/27/16 23:37) Chest, Single Ap (08/27/16 23:37) Ecg Monitoring (08/27/16 23:37) Iv Access Insert/Monitor (08/27/16 23:37) Oximetry (08/27/16 23:37) Sodium Chloride 0.9% Flush (Ns Flush) (08/27/16 23:45) Nitroglycerin Sl (Nitrostat Sl) (08/27/16 23:45) Sodium Chlorid 0.9% 500 Ml Inj (Ns 500 M (08/27/16 23:45) Ct Pulmonary Angiogram (08/28/16 01:06) Ketorolac Inj (Toradol Inj) (08/28/16 01:15) Iohexol 350 Inj (Omnipaque 350 Inj) (08/28/16 01:51) Admit Order (Ed Use Only) (08/28/16 03:12) Labs Laboratory Tests Test 08/27/16 23:45 White Blood Count 9.3 TH/MM3 Red Blood Count 5.02 MIL/MM3 Hemoglobin 14.2 GM/DL Hematocrit 43.6 % Mean Corpuscular Volume 86.7 FL Mean Corpuscular Hemoglobin 28.3 PG Mean Corpuscular Hemoglobin 32.6 % Concent Red Cell Distribution Width 16.3 % Platelet Count 303 TH/MM3 Mean Platelet Volume 7.4 FL Neutrophils (%) (Auto) 61.1 % Lymphocytes (%) (Auto) 28.2 % Monocytes (%) (Auto) 8.8 % Eosinophils (%) (Auto) 1.4 % Basophils (%) (Auto) 0.5 % Neutrophils # (Auto) 5.7 TH/MM3 Lymphocytes # (Auto) 2.6 TH/MM3 Monocytes # (Auto) 0.8 TH/MM3 Eosinophils # (Auto) 0.1 TH/MM3 Basophils # (Auto) 0.0 TH/MM3 CBC Comment DIFF FINAL Differential Comment Prothrombin Time 10.4 SEC Prothromb Time International 0.9 RATIO Ratio Activated Partial 28.6 SEC Thromboplast Time D-Dimer Quantitative (PE/DVT) 0.26 MG/L FEU Sodium Level 143 MEQ/L Potassium Level 3.6 MEQ/L Chloride Level 105 MEQ/L Carbon Dioxide Level 27.2 MEQ/L Anion Gap 11 MEQ/L Blood Urea Nitrogen 19 MG/DL Creatinine 1.02 MG/DL Estimat Glomerular Filtration 73 ML/MIN Rate Random Glucose 103 MG/DL Calcium Level 8.9 MG/DL Total Bilirubin 0.3 MG/DL Aspartate Amino Transf 13 U/L (AST/SGOT) Alanine Aminotransferase 29 U/L (ALT/SGPT) Alkaline Phosphatase 128 U/L Total Creatine Kinase 50 U/L Troponin I 0.02 NG/ML B-Type Natriuretic Peptide 26 PG/ML Total Protein 7.7 GM/DL Albumin 3.7 GM/DL MDM Medical Decision Making Medical Screen Exam Complete: Yes Emergency Medical Condition: Yes Medical Record Reviewed: Yes Interpretation(s) EKG at 2329: NSR at 84bpm, qt/qtc: 354/395, no acute changes Vital Signs Date Time Temp Pulse Resp B/P Pulse Ox O2 Delivery O2 Flow Rate FiO2 08/27/16 23:29 84 18 165/80 97 Room Air 08/27/16 23:29 97 Differential Diagnosis Differential includes ACS, arrhythmia, PE, costochondritis, electrolyte abnormality Narrative Course Patient is a 66-year-old male with history of coronary artery disease, status post CABG in April 2016 issues hypertension, hyperlipidemia presents to emergency room with complaints of chest pain. Patient was placed on a cardiac cath lab manager upon arrival to the emergency room. EKG obtained, patient with no acute changes compared to previous EKGs. Sublingual nitroglycerin ordered for patient. Patient did take a baby aspirin today. Lab work including cardiac enzymes ordered. X-ray chest ordered. Will continue monitoring on cardiac cath lab manager. CBC & BMP Diagram 08/27/16 23:45 trop 0.02 Last Impressions Chest X-Ray 08/27/[id number] Signed Impressions: Service Date/Time: Saturday, August 27, 2016 23:45 - CONCLUSION: Bibasilar atelectasis and left base effusion Kyrie Bill MD patient with slight relief of pain after sl nitro x 4 will order cta to evaluate for possible PE, will order toradol for pain relief Last Impressions CT Angiography 08/28/16 0106 Signed Impressions: Service Date/Time: Sunday, August 28, 2016 01:48 - CONCLUSION: No evidence of pulmonary embolism Kyrie Bill MD Chest X-Ray [id number]/[id number] Signed Impressions: Service Date/Time: Saturday, August 27, 2016 23:45 - CONCLUSION: Bibasilar atelectasis and left base effusion Kyrie Bill MD Patient will be obs to chest pain unit Diagnosis Primary Impression: Chest pain Qualified Code: R07.9 - Chest pain, unspecified type Admitting Information Admitting Physician Requests: Observation Alaina Blair DO Aug 27, 2016 23:44
[2016-08-27] MEDS ORDERED: SODIUM CHLORID 0.9% 500 ML INJ 500 ML IV ONE (23:45)
[2016-08-27] MEDS ORDERED: SODIUM CHLORIDE 0.9% FLUSH 10 ML FLUSH IVF PRN (23:45)
[2016-08-27] MEDS: NITROGLYCERIN 0.4 MG SL 25 TABS/BTL SL SCH ×2 (23:46→23:54)
[2016-08-27 23:54] VITALS: BP 119/69; PULSE 82; RESP 18; O2SAT 95
[2016-08-27 23:58] LABS: AUTOMATED NEUTROPHIL # 5.7 TH/MM3 (1.8-7.7); BASOPHIL % 0.5 % (0.0-2.0); EOSINOPHIL # 0.1 TH/MM3 (0-0.4); EOSINOPHIL % 1.4 % (0.0-4.0); HEMATOCRIT 43.6 % (39.0-51.0); HEMO FLAGS DIFF FINAL; LYMPH % 28.2 % (9.0-44.0); LYMPHOCYTE # 2.6 TH/MM3 (1.0-4.8); MEAN CELL VOLUME 86.7 FL (80.0-100.0); MEAN CORPUSCULAR HEMOGLOBIN 28.3 PG (27.0-34.0); MEAN CORPUSCULAR HGB CONC 32.6 % (32.0-36.0); MONO % 8.8 % (0.0-8.0); NEUT % 61.1 % (16.0-70.0); PLATELET COUNT 303 TH/MM3 (150-450); RED BLOOD COUNT 5.02 MIL/MM3 (4.50-5.90); RED CELL DISTRIBUTION WIDTH 16.3 % (11.6-17.2); WHITE BLOOD COUNT 9.3 TH/MM3 (4.0-11.0)
[2016-08-28] VITALS (9 sets, daily range): BP systolic 124–141; BP diastolic 69–80; PULSE 67–90; RESP 16–19; TEMP 97–98.6; O2SAT 94–98
[2016-08-28] MEDS: NITROGLYCERIN 0.4 MG SL 25 TABS/BTL SL SCH (00:04)
--- NOTE | 2016-08-28 00:11 | RADRPT ---
EXAM DATE/TIME: 08/27/2016 23:45 [facility] COMPARISON: CHEST SINGLE AP, May 08, 2016, 4:30. INDICATIONS : Pt having chest pain since late this afternoon- Open heart surgery April 2016 MEDICAL HISTORY : Hypertension. Myocardial infarction. Hypercholesterolemia. GERD SURGICAL HISTORY : CABG. Tonsillectomy. Open heart surgery 04/2016 ENCOUNTER: Initial ACUITY: 1 day PAIN SCORE: 8/10 LOCATION: Bilateral chest FINDINGS: There is mild streaky bibasilar parenchymal opacity which may be residual atelectasis. Hazy density p resent in the left base may be associated effusion. Ardiac contours are grossly satisfactory. CONCLUSION: Bibasilar atelectasis and left base effusion Kyrie Bill MD on August 28, 2016 at 0:08 Board Certified Radiologist. This report was verified electronically.
[2016-08-28 00:27] LABS: ALT (GPT) 29 U/L (12-78); ANION GAP 11 MEQ/L (5-15); AST (GOT) 13 U/L (15-37); BICARBONATE 27.2 MEQ/L (21.0-32.0); BLOOD UREA NITROGEN 19 MG/DL (7-18); CHLORIDE 105 MEQ/L (98-107); GLOMERULAR FILTRATION RATE 73 ML/MIN (>89); POTASSIUM 3.6 MEQ/L (3.5-5.1); SODIUM (NA) 143 MEQ/L (136-145)
[2016-08-28 00:30] LABS: ALKALINE PHOSPHATASE 128 U/L (45-117); TOTAL BILIRUBIN ADULT 0.3 MG/DL (0.2-1.0)
[2016-08-28 00:35] LABS: CREATINE KINASE 50 U/L (39-308)
[2016-08-28 00:39] LABS: APTT (PATIENT) 28.6 SEC (24.3-30.1); INTERNATIONAL NORMALIZED RATIO 0.9 RATIO; PROTHROMBIN TIME - PATIENT 10.4 SEC (9.8-11.6)
[2016-08-28] MEDS ORDERED: KETOROLAC TROMETHAMINE 30 MG/ML (IVP) VIAL IV PUSH ONE (01:15)
[2016-08-28] MEDS ORDERED: IOHEXOL 350 MG/ML 10 ML VIAL (for RAD DIAG) IV ONE (01:51)
--- NOTE | 2016-08-28 02:31 | RADRPT ---
EXAM DATE/TIME: 08/28/2016 01:48 [facility] COMPARISON: No previous studies available for comparison. INDICATIONS : Chest pain; rule out pulmonary embolus. IV CONTRAST: 75 cc Omnipaque 350 (iohexol) IV RADIATION DOSE: 23.18 CTDIvol (mGy) MEDICAL HISTORY : Hypertension. Cardiovascular disease SURGICAL HISTORY : CABG ENCOUNTER: Initial ACUITY: 1 day PAIN SCALE: 7/10 LOCATION: chest TECHNIQUE: Volumetric scanning of the chest was performed using a pulmonary embolism protocol MIP images were re constructed. Using automated exposure control and adjustment of the mA and/or kV according to patien t size, radiation dose was kept as low as reasonably achievable to obtain optimal diagnostic quality images. DICOM format image data is available electronically for review and comparison. Follow-up recommendations for incidentally detected pulmonary nodules are based at a minimum on nodul e size and patient risk factors according to Fleischner Society Guidelines.FINDINGS: PULMONARY ARTERIES: No filling defects are seen in the pulmonary arteries through the segmental level. LUNGS: Patchy bilateral atelectasis/infiltrate. PLEURAE: There is no pleural thickening or pleural effusion. MEDIASTINUM: There is good visualization of the great vessels of the middle mediastinum. No evidence of mediastin al or hilar adenopathy/mass. Coronary artery calcifications. Small hiatal hernia. MUSCULOSKELETAL: Within normal limits for patient age. MISCELLANEOUS: The visualized upper abdominal organs demonstrate no acute abnormality. CONCLUSION: No evidence of pulmonary embolism Kyrie Bill MD on August 28, 2016 at 2:27 Board Certified Radiologist. This report was verified electronically.
[2016-08-28 06:22] LABS: CREATINE KINASE 53 U/L (39-308)
[2016-08-28] MEDS ORDERED: CLOPIDOGREL 75 MG TAB PO SCH (09:30)
[2016-08-28] MEDS ORDERED: METOPROLOL TARTRATE 25 MG TAB PO SCH (09:30)
[2016-08-28] MEDS ORDERED: ASPIRIN 81 MG CHEW TAB CHEW SCH (09:30)
--- NOTE | 2016-08-28 11:34 | HHI.HP ---
HPI Primary Care Physician Chin Workman MD Chief Complaint Chest pain History of Present Illness Mr. Romero is a 66-year-old male patient with a known medical history of CAD with CABG x 3, hypertension and hyperlipidemia who presented to the ED with complaints of sharp/knife-like left chest pain that began at rest last evening while he was watching tv. Patient states that the pain was a 10/10, intermittent and subsides quickly, occurred intermittently up to 20-30 times. Does admit to some associated dyspnea. Denies any nausea, vomiting or diaphoresis. Patient did undergo a CABG in April of this year by Dr. Randall. At that time, patient states the pain was different than the presenting symptoms. He states at that time the pain was recognized while walking his trash out, occurred in his midsternal chest, and radiated down his bilateral arms, with associated dyspnea. Patient states he has been compliant with his home medications. At this time patient states that all symptoms have resolved. Review of Systems Respiratory: COMPLAINS OF: Shortness of breath Cardiovascular: COMPLAINS OF: Chest pain Past Family Social History Allergies: Coded Allergies: Lisinopril (Unverified Allergy, Severe, ANGIOEDEMA, 05/05/16) Past Medical History Dyslipidemia GERD Hard of hearing in his left ear History of [place] Past Surgical History CABG x 09 April 2016 Ruptured temporal membrane repair Tonsillectomy Reported Medications Reported Meds & Active Scripts Active Reported Omeprazole 20 Mg Tab 20 Mg PO DAILY Plavix (Clopidogrel Bisulfate) 75 Mg Tab 75 Mg PO DAILY Aspirin 81 Mg Chew 81 Mg CHEW DAILY Allopurinol 300 Mg Tab 300 Mg PO BID Flomax (Tamsulosin HCl) 0.4 Mg Cap 0.4 Mg PO DAILY Metoprolol Tartrate 25 Mg Tab 25 Mg PO BID Active Ordered Medications Current Medications Medications (Trade) Dose Ordered Sig/Monique Route Start Time Stop Time Status Last Admin (NS Flush) 2 ml UNSCH PRN IVF 08/27/16 23:45 (Zyloprim) 300 mg BID PO 08/28/16 21:00 (Aspirin Chew) 81 mg DAILY CHEW 08/28/16 09:30 08/28/16 09:56 (Plavix) 75 mg DAILY PO 08/28/16 09:30 08/28/16 09:56 (Lopressor) 25 mg BID PO 08/28/16 09:30 08/28/16 09:56 (Flomax) 0.4 mg DAILY PO 08/29/16 09:00 (Protonix) 20 mg DAILY PO 08/29/16 09:00 Family History Patient is not aware of significant medical disease runs in his family. Social History Denies any current tobacco use. States he quit smoking 40 years ago. Admits to occasional alcohol use. Denies any illicit drug use. Physical Exam Vital Signs Vital Signs Date Time Temp Pulse Resp B/P Pulse Ox O2 Delivery O2 Flow Rate FiO2 08/28/16 08:17 98.6 67 18 136/73 96 08/28/16 08:00 74 08/28/16 06:40 97.0 70 18 141/73 96 08/28/16 05:21 98 Nasal Cannula 2.00 08/28/16 04:00 70 16 124/80 98 Nasal Cannula 2 08/28/16 02:00 82 19 124/80 98 Nasal Cannula 2 08/28/16 01:00 78 18 135/69 98 Nasal Cannula 2 08/28/16 00:04 90 18 130/70 94 Nasal Cannula 2 08/27/16 23:54 82 18 119/69 95 Room Air 08/27/16 23:29 84 18 165/80 97 Room Air 08/27/16 23:29 97 Physical Exam GENERAL: Well-nourished, well-developed male patient, in NAD. SKIN: Warm and dry. HEAD: Atraumatic. Normocephalic. EYES: Pupils equal and round. No scleral icterus. No injection or drainage. ENT: No nasal bleeding or discharge. Mucous membranes pink and moist. NECK: Trachea midline. No JVD. CARDIOVASCULAR: Regular rate and rhythm. RESPIRATORY: No accessory muscle use. Clear to auscultation. Breath sounds equal bilaterally. GASTROINTESTINAL: Abdomen soft, non-tender, nondistended. Hepatic and splenic margins not palpable. MUSCULOSKELETAL: Extremities without clubbing, cyanosis, or edema. No obvious deformities. Pain expressed to left chest area to palpation, localized. NEUROLOGICAL: Awake and alert. No obvious cranial nerve deficits. Motor grossly within normal limits. Five out of 5 muscle strength in the arms and legs. Normal speech. PSYCHIATRIC: Appropriate mood and affect; insight and judgment normal. Laboratory Laboratory Tests Test 08/27/16 08/28/16 08/28/16 23:45 05:32 08:07 White Blood Count 9.3 Red Blood Count 5.02 Hemoglobin 14.2 Hematocrit 43.6 Mean Corpuscular Volume 86.7 Mean Corpuscular Hemoglobin 28.3 Mean Corpuscular Hemoglobin 32.6 Concent Red Cell Distribution Width 16.3 Platelet Count 303 Mean Platelet Volume 7.4 Neutrophils (%) (Auto) 61.1 Lymphocytes (%) (Auto) 28.2 Monocytes (%) (Auto) 8.8 Eosinophils (%) (Auto) 1.4 Basophils (%) (Auto) 0.5 Neutrophils # (Auto) 5.7 Lymphocytes # (Auto) 2.6 Monocytes # (Auto) 0.8 Eosinophils # (Auto) 0.1 Basophils # (Auto) 0.0 CBC Comment DIFF FINAL Differential Comment Prothrombin Time 10.4 Prothromb Time International 0.9 Ratio Activated Partial 28.6 Thromboplast Time D-Dimer Quantitative (PE/DVT) 0.26 Sodium Level 143 Potassium Level 3.6 Chloride Level 105 Carbon Dioxide Level 27.2 Anion Gap 11 Blood Urea Nitrogen 19 Creatinine 1.02 Estimat Glomerular Filtration 73 Rate Random Glucose 103 Calcium Level 8.9 Total Bilirubin 0.3 Aspartate Amino Transf 13 (AST/SGOT) Alanine Aminotransferase 29 (ALT/SGPT) Alkaline Phosphatase 128 Total Creatine Kinase 50 53 46 Troponin I 0.02 LESS THAN 0.02 0.02 B-Type Natriuretic Peptide 26 Total Protein 7.7 Albumin 3.7 Result Diagram: 08/27/16234408/27/162344 Imaging Last Impressions CT Angiography 08/28/16 0106 Signed Impressions: Service Date/Time: Sunday, August 28, 2016 01:48 - CONCLUSION: No evidence of pulmonary embolism Kyrie Bill MD Chest X-Ray 08/27/16 7339 Signed Impressions: Service Date/Time: Saturday, August 27, 2016 23:45 - CONCLUSION: Bibasilar atelectasis and left base effusion Kyrie Bill MD Assessment and Plan Assessment and Plan * Chest pain: Ruled out. Serial troponins normal. EKG normal. Symptoms are atypical and musculoskeletal in nature. Will be seen by Dr. Conrad here in the chest pain center. Will probably be discharged and encouraged to continue current medical regimen and follow up with [facility] in the outpatient setting. Hypertension: Controlled. Continue home medications. Hyperlipidemia: Continue Lipitor Fernando Taylor Aug 28, 2016 11:34
--- NOTE | 2016-08-28 12:05 | HHI.DCPOC ---
Discharge Care Plan Diagnosis: (1) Chest pain, atypical (2) Hypertension (3) Hyperlipidemia (4) S/P CABG (coronary artery bypass graft) Goals to Promote Your Health * To prevent worsening of your condition and complications * To maintain your health at the optimal level Directions to Meet Your Goals Take your medications as prescribed Follow your dietary instruction Follow activity as directed Keep your appointments as scheduled Take your immunizations and boosters as scheduled If your symptoms worsen call your PCP, if no PCP go to Urgent Care Center or Emergency Room Smoking is Dangerous to Your Health. Avoid second hand smoke Call the 24-hour hour crisis hotline for domestic abuse at Fernando Taylor Aug 28, 2016 12:05
--- NOTE | 2016-08-28 15:02 | EKG ---
Date Performed: 08/28/2016 Time Performed: 06:49:24 PTAGE: 66 years EKG: Sinus rhythm Normal ECG PREVIOUS TRACING : 08/28/2016 05.33 Since previous tracing, no significant change noted DOCTOR: Harrison Conrad Interpretating Date/Time 08/28/2016 15:00:03
--- NOTE | 2016-08-28 15:06 | EKG ---
Date Performed: 08/28/2016 Time Performed: 05:33:15 PTAGE: 66 years EKG: SINUS BRADYCARDIA Normal ECG PREVIOUS TRACING : 08/27/2016 23.29 Since previous tracing, no significant change noted DOCTOR: Harrison Conrad Interpretating Date/Time 08/28/2016 15:05:38
--- NOTE | 2016-08-28 15:24 | EKG ---
Date Performed: 08/27/2016 Time Performed: 23:29:42 PTAGE: 66 years EKG: Sinus rhythm MINIMAL VOLTAGE CRITERIA FOR LVH, CONSIDER NORMAL VARIANT PREVIOUS TRACING : 05/09/2016 22.13 Since previous tracing, no significant change noted DOCTOR: Harrison Conrad Interpretating Date/Time 08/28/2016 15:23:26
[2016-08-28] MEDS ORDERED: ALLOPURINOL 300 MG TAB PO SCH (21:00)
[2016-08-29] MEDS ORDERED: PANTOPRAZOLE SOD 20 MG DELAYED RELEASE TAB PO SCH (09:00)
[2016-08-29] MEDS ORDERED: TAMSULOSIN HCL 0.4 MG CAP PO SCH (09:00)
== END 2016-08-28 13:13 | disposition home or self-care (01) ==
LOC: NEPC 23:23 → NEDA 08-28 03:14 → NEPHCDU 08-28 06:14
PROVIDERS: ADMIT Internal Medicine Cardiovascular Disease; ATTEND Internal Medicine Cardiovascular Disease
DX: R07.89 Other chest pain (principal); R06.00 Dyspnea, unspecified; I25.10 Atherosclerotic heart disease of native coronary artery without angina pectoris; Z95.1 Presence of aortocoronary bypass graft; E78.5 Hyperlipidemia, unspecified; I25.2 Old myocardial infarction; I10 Essential (primary) hypertension; K21.9 Gastro-esophageal reflux disease without esophagitis; E78.00 Pure hypercholesterolemia, unspecified; Z79.82 Long term (current) use of aspirin; Z79.899 Other long term (current) drug therapy; Z87.891 Personal history of nicotine dependence
CPT/HCPCS: 71010; 71275; 80053; 82550; 83880; 84484; 85025; 85379; 85610; 85730; 93005; 96374; 96375; 99285; G0378; J1885; J7040; Q9967